=== PATIENT | female | born 1955 | race Caucasian/White ===

== ENCOUNTER 2017-02-24 13:07 | Inpatient (IN) | payer OTHER ==
[~2017-02-24] VITALS: Ht 157.5 cm; Wt 68.0 kg
--- NOTE | 2017-02-24 13:12 | ERA ---
ER Documentation Chief Complaint Date/Time DATE: 02/24/17 TIME: 13:12 Chief Complaint Altered level of consciousness HPI The patient is a 61-year-old female, presenting to the ER because of altered level of consciousness. She hit her head on the table when she bent over at work 4 days ago. She has not been sleeping well , unable to recognize her roommate, not eating, for the last 3 days. She was seen at [facility] yesterday. She had a normal brain CT and was diagnosed with UTI and due to with antibiotic. She has not been herself, therefore the roommate called 911 and took her to the hospital again today. The last time she spoke was around 3:30 AM this morning with her roommate, however she was confused. She has not been speaking this morning and has not follow commands. She smokes half a pack a day, does not drink or use any illicit drug Past medical history: Hypothyroidism Past surgical history: None ROS All systems reviewed and are negative except as per history of present illness. Medications Home Meds Reported Medications Levothyroxine Sodium* (Levothyroxine Sodium*) 100 Mcg Tablet, 100 MCG PO BEFORE BREAKFAST, #30 TAB 02/24/17 Allergies Allergies: Coded Allergies: No Known Allergy (Unverified , 02/24/17) Physical Exam Vitals Vital Signs Date Time Temp Pulse Resp B/P Pulse Ox O2 Delivery O2 Flow Rate FiO2 02/24/17 17:40 98.1 69 20 110/54 99 Room Air 02/24/17 15:05 71 16 129/62 100 Room Air 02/24/17 13:13 99.3 69 20 129/67 99 Physical Exam Const: No acute distress. Head: Atraumatic. Eyes: Normal Conjunctiva. ENT: Normal External Ears, Nose and Mouth. Neck: Full range of motion. No meningismus. Resp: Clear to auscultation bilaterally. Cardio: Regular rate and rhythm, no murmurs. Abd: Soft, non distended, normal bowel sounds, non tender. Skin: No petechiae or rashes. Back: No midline or flank tenderness. Ext: No cyanosis, or edema. Neur: Unable to perform due to her condition. She does not follow commands Psych: Unable to perform due to her condition Result Diagram: 02/24/17 1340 02/24/17 1340 Results 24 hrs Laboratory Tests Test 02/24/17 13:40 02/24/17 13:50 White Blood Count 8.410^3/ul Red Blood Count 4.6910^6/ul Hemoglobin 14.4g/dl Hematocrit 41.8% Mean Corpuscular Volume 89.1fl Mean Corpuscular Hemoglobin 30.7pg Mean Corpuscular Hemoglobin Concent 34.4g/dl Red Cell Distribution Width 11.8% Platelet Count 16908^3/UL Mean Platelet Volume 11.1fl Neutrophils % 76.2% Lymphocytes % 19.1% Monocytes % 3.8% Eosinophils % 0.1% Basophils % 0.4% Nucleated Red Blood Cells % 0.0/100WBC Neutrophils # 6.410^3/ul Lymphocytes # 1.610^3/ul Monocytes # 0.310^3/ul Eosinophils # 0.010^3/ul Basophils # 0.010^3/ul Nucleated Red Blood Cells # 0.010^3/ul Prothrombin Time 13.7Sec Prothrombin Time Ratio 1.1 INR International Normalized Ratio 1.05 Activated Partial Thromboplast Time 32.4Sec Sodium Level 138mmol/L Potassium Level 3.8mmol/L Chloride Level 104mmol/L Carbon Dioxide Level 26mmol/L Anion Gap 12 Blood Urea Nitrogen 10mg/dl Creatinine 0.57mg/dl Glucose Level 92mg/dl Calcium Level 9.2mg/dl Total Bilirubin 0.3mg/dl Direct Bilirubin 0.00mg/dl Indirect Bilirubin 0.3mg/dl Aspartate Amino Transf (AST/SGOT) 20IU/L Alanine Aminotransferase (ALT/SGPT) 30IU/L Alkaline Phosphatase 83IU/L Total Protein 7.4g/dl Albumin 4.3g/dl Globulin 3.10g/dl Albumin/Globulin Ratio 1.38 Free Thyroxine Index 4.23ug/ml Thyroxine (T4) 13.7ug/dl Triiodothyronine (T3) Uptake 30.9% Salicylates Level < 1.0mg/dl Acetaminophen Level < 10.0ug/ml Ethyl Alcohol Level < 10.0mg/dl Urine Color LT. YELLOW Urine Clarity CLEAR Urine pH 5.5 Urine Specific Creede <=1.005 Urine Ketones 15 Urine Nitrite NEGATIVE Urine Bilirubin NEGATIVE Urine Urobilinogen 0.2 E.U./dL Urine Leukocyte Esterase NEGATIVE Urine Microscopic RBC 0-2/HPF Urine Microscopic WBC NONE SEEN/HPF Urine Squamous Epithelial Cells FEW Urine Hemoglobin TRACE Urine Glucose NEGATIVE% Urine Total Protein NEGATIVE Urine Opiates Screen Negative Urine Barbiturates Negative Urine Amphetamines Screen Negative Urine Benzodiazepines Screen Negative Urine Cocaine Screen Negative Urine Cannabinoids Negative Current Medications Medications (Trade) Dose Ordered Sig/Oneyda Route PRN Reason Start Time Stop Time Status Last Admin Dose Admin IV Flush 10 ml 10 ml STK-MED ONCE .ROUTE 02/24/17 15:28 02/24/17 15:29 DC 02/24/17 15:52 Sodium Chloride 100 ml @ ud STK-MED ONCE .ROUTE 02/24/17 15:28 02/24/17 15:29 DC 02/24/17 15:52 Iohexol (Omnipaque) 100 ml @ ud STK-MED ONCE .ROUTE 02/24/17 15:28 02/24/17 15:29 DC 02/24/17 15:52 Levothyroxine Sodium 100 mcg 100 mcg BEFORE BREAKFAST PO 02/25/17 07:00 Levetiracetam 100 ml @ 400 mls/hr ONCE ONCE IVPB 02/24/17 18:30 02/24/17 18:44 Levetiracetam (Keppra 500 Mg/ 100ml (Pmx)) 100 ml @ 400 mls/hr Q12 IVPB 02/25/17 09:00 Famotidine (Pepcid) 20 mg BID PO 02/24/17 21:00 Docusate Sodium (Colace) 100 mg BID PO 02/24/17 21:00 Ondansetron HCl 4 mg 4 mg Q6H PRN IV NAUSEA AND/OR VOMITING 02/24/17 18:30 Sodium Chloride (NS) 1,000 ml @ 100 mls/hr Q10H IV 02/24/17 18:30 Procedures/[place] [id number] Radiology Main Line: [phone] DIAGNOSTIC IMAGING REPORT Patient: KI JOHNSON : 1955 Age: 61 Sex: F MR #: [id number] DOS: 02/24/17 1324 Ordering MD: MERVIN PASTOR MD Location: E/R Room/Bed: PROCEDURE: CTA head and neck CLINICAL INDICATION: Altered mental status, trauma. TECHNIQUE: The study was performed utilizing multidetector CT scanner. Direct thin section axial sections were obtained through the head and neck after the uneventful administration of 90 cc of Omnipaque-350 nonionic intravenous contrast material. Coronal and sagittal as well as maximal intensity projection reformations were obtained. 3-D images were made. The images were reviewed on a PACS workstation. One or more the following does reduction techniques were utilized: Automated exposure control, adjustment of themA/ or kV according to patient's size, or use of iterative reconstruction technique. The total CTDIvol is 23.1, 13.31 mGy and the DLP is 524.28 mGy-cm. COMPARISON: No prior studies are available for comparison. FINDINGS: CTA NECK: The origins of the great vessels off the aortic arch are patent without significant stenosis. Bilateral distal cervical internal carotid arteries are tortuous. The common carotid and internal carotid arteries are patent without significant stenosis by NASCET criteria. Direct measurements of vessel diameters was made in reference to measurements of the distal internal carotid artery diameter. The vertebral arteries are also patent without high-grade stenosis. CTA BRAIN: The internal carotid arteries are patent without significant stenosis. The proximal middle cerebral arteries and anterior cerebral arteries are patent without significant stenosis. The intracranial vertebral arteries, basilar artery, and posterior cerebral arteries are also unremarkable without significant stenosis. No aneurysm or vascular malformation is identified. IMPRESSION: 1. Patent major intracranial and neck arteries. RPTAT: HH .Clementina Whiteside MD, Date Time Electronically viewed and signed by .Clementina Whiteside MD, on 02/24/2017 16: 06 .N/ CC: MERVIN PASTOR MD [place] [address] Radiology Main Line: [phone] DIAGNOSTIC IMAGING REPORT Patient: KI JOHNSON : 1955 Age: 61 Sex: F MR #: [id number] DOS: 02/24/17 1324 Ordering MD: MERVIN PASTOR MD Location: E/R Room/Bed: PROCEDURE: CTA head and neck CLINICAL INDICATION: Altered mental status, trauma. TECHNIQUE: The study was performed utilizing multidetector CT scanner. Direct thin section axial sections were obtained through the head and neck after the uneventful administration of 90 cc of Omnipaque-350 nonionic intravenous contrast material. Coronal and sagittal as well as maximal intensity projection reformations were obtained. 3-D images were made. The images were reviewed on a PACS workstation. One or more the following does reduction techniques were utilized: Automated exposure control, adjustment of themA/ or kV according to patient's size, or use of iterative reconstruction technique. The total CTDIvol is 23.1, 13.31 mGy and the DLP is 524.28 mGy-cm. COMPARISON: No prior studies are available for comparison. FINDINGS: CTA NECK: The origins of the great vessels off the aortic arch are patent without significant stenosis. Bilateral distal cervical internal carotid arteries are tortuous. The common carotid and internal carotid arteries are patent without significant stenosis by NASCET criteria. Direct measurements of vessel diameters was made in reference to measurements of the distal internal carotid artery diameter. The vertebral arteries are also patent without high-grade stenosis. CTA BRAIN: The internal carotid arteries are patent without significant stenosis. The proximal middle cerebral arteries and anterior cerebral arteries are patent without significant stenosis. The intracranial vertebral arteries, basilar artery, and posterior cerebral arteries are also unremarkable without significant stenosis. No aneurysm or vascular malformation is identified. IMPRESSION: 1. Patent major intracranial and neck arteries. RPTAT: HH .Clementina Whiteside MD, Date Time Electronically viewed and signed by .Clementina Whiteside MD, MD on 02/24/2017 16: 07 .N/ CC: MERVIN PASTOR MD [place] [address] Radiology Main Line: [phone] DIAGNOSTIC IMAGING REPORT Patient: KI JOHNSON : 1955 Age: 61 Sex: F MR #: [id number] DOS: 02/24/17 1324 Ordering MD: MERVIN PASTOR MD Location: E/R Room/Bed: PROCEDURE: XR Chest. CLINICAL INDICATION: Altered Mental Status TECHNIQUE: Single frontal chest x-ray. COMPARISON: None. FINDINGS: The lungs are clear of acute infiltrates, edema, effusions, or masses.. The cardiomediastinal silhouette is unremarkable. The osseous structures are intact. IMPRESSION: No acute cardiopulmonary disease. RPTAT: JJ .Mikel Felix MD, MD Date Time Electronically viewed and signed by .Mikel Felix MD, MD on 02/24/2017 14:30 .L/ CC: MERVIN PASTOR MD [place] [address] Radiology Main Line: [phone] DIAGNOSTIC IMAGING REPORT Patient: KI JOHNSON : 1955 Age: 61 Sex: F MR #: [id number] DOS: 02/24/17 1324 Ordering MD: MERVIN PASTOR MD Location: E/R Room/Bed: PROCEDURE: CT brain without contrast CLINICAL INDICATION: Head trauma/injury TECHNIQUE: CT of the brain without contrast performed on a multidetector CT scanner, with multiplanar reformats. One or more of the following dose reduction techniques were used: Automated exposure control, adjustment in mA and / or kV according to patient size, use of iterative reconstructive technique. CTDIvol = 44 mGy; DLP = 720 mGy-cm. COMPARISON: At FINDINGS: No acute intracranial hemorrhage is identified. No extra-axial fluid collection is seen. There is no mass effect. No midline shift is identified. Ventricles and sulci are mildly enlarged compatible with volume loss. There is a punctate calcification in the parasagittal left frontal region. Yu -white differentiation is preserved. Sella is noted to be partly empty. Mild atherosclerotic calcifications are seen at the intracranial internal carotid arteries. Osseous structures are unremarkable. There is partial right sphenoid sinus opacification. IMPRESSION: 1. No evidence of acute intracranial pathology. 2. Mild volume loss. 3. 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 RPTAT: VV .Can Ibanez MD, Date Time Electronically viewed and signed by .Can Ibanez MD, MD on 02/24/2017 15:46 .O/ CC: MERVIN PASTOR MD EKG: Read by emergency physician Rate/Rhythm: Normal Sinus Rhythm 71 beats/min QRS, ST, T-waves: No ST elevation, no T inversion Impression: Normal EKG MEDICAL MAKING DECISION: The patient is a 61-year-old female, presenting with acute encephalopathy of unclear etiology. The differential diagnoses considered include but are not limited to medication non-compliance, alcohol intoxication or withdrawal, drug intoxication or withdrawal, endocrine disorder , trauma, CVA, tumor, metabolic encephalopathy, septic encephalopathy, seizure, psychiatric illness. Critical Care: Time: 35 minutes excluding all billable procedures. Treatments/Evaluations: Close monitoring and treatment of unstable vital signs, cardiorespiratory, and neurologic status, while maintaining tight balance of fluid, respiratory, and cardiac interventions. Departure Diagnosis: Primary Impression: Acute encephalopathy Condition: Stable Comments I discussed the findings with the patient. I discussed the patient with the on- call hospitalist Dr. Rodriguez who was made aware of the lab, the treatment, the patient condition. The patient is admitted to telemetry at 4:50 PM MERVIN PASTOR MD Feb 24, 2017 13:12
[2017-02-24] MEDS ORDERED: LEVO100T87 PO (13:41)
[2017-02-24 13:49] LABS: ADD SCAN DIFF NO
[2017-02-24 13:54] LABS: BASOPHILS % 0.4 % (0.0-2.0); EOSINOPHILS % 0.1 % (0.0-7.0); HEMATOCRIT 41.8 % (37.0-47.0); HEMOGLOBIN 14.4 g/dl (12.0-16.0); LYMPHOCYTES # 1.6 10^3/ul (0.8-2.9); LYMPHOCYTES % 19.1 % (15.0-51.0); MEAN CORPUSCULAR HEMOGLOBIN 30.7 pg (29.0-33.0); MEAN CORPUSCULAR HGB CONC 34.4 g/dl (32.0-37.0); MEAN CORPUSCULAR VOLUME 89.1 fl (82.0-101.0); MEAN PLATELET VOLUME 11.1 fl (7.4-10.4); MONOCYTE # 0.3 10^3/ul (0.3-0.9); MONOCYTES % 3.8 % (0.0-11.0); NEUTROPHIL # 6.4 10^3/ul (1.6-7.5); NEUTROPHILS % 76.2 % (39.0-77.0); PLATELET COUNT 200 10^3/UL (140-415); RED BLOOD COUNT 4.69 10^6/ul (4.20-5.40); RED CELL DISTRIBUTION WIDTH 11.8 % (11.5-14.5); WHITE BLOOD COUNT 8.4 10^3/ul (4.8-10.8)
[2017-02-24 14:04] LABS: INR 1.05; PROTIME 13.7 Sec (12.2-14.2); PT RATIO 1.1
[2017-02-24 14:05] LABS: PARTIAL THROMBOPLASTIN TIME 32.4 Sec (25.0-35.0)
[2017-02-24 14:07] LABS: ALANINE AMINOTRANSFERASE 30 IU/L (13-69); ALBUMIN 4.3 g/dl (3.3-4.9); ALBUMIN/GLOBULIN RATIO 1.38; ALKALINE PHOSPHATASE 83 IU/L (42-121); ANION GAP 12 (8-16); ASPARTATE AMINO TRANSFERASE 20 IU/L (15-46); BILIRUBIN,INDIRECT 0.3 mg/dl (0-1.1); BILIRUBIN,TOTAL 0.3 mg/dl (0.2-1.3); BLOOD UREA NITROGEN 10 mg/dl (7-20); CALCIUM 9.2 mg/dl (8.4-10.2); CARBON DIOXIDE 26 mmol/L (21-31); CHLORIDE 104 mmol/L (97-110); CREATININE 0.57 mg/dl (0.44-1.00); GLUCOSE 92 mg/dl (70-220); POTASSIUM 3.8 mmol/L (3.5-5.1); SODIUM 138 mmol/L (135-144); TOTAL PROTEIN 7.4 g/dl (6.1-8.1)
[2017-02-24 14:10] LABS: ADD UMIC YES; URINE BILIRUBIN (Dip) NEGATIVE (NEGATIVE); URINE BLOOD (Dip) TRACE (NEGATIVE); URINE COLOR LT. YELLOW (YELLOW); URINE GLUCOSE (Dip) NEGATIVE (NEGATIVE); URINE KETONES (Dip) 15 (NEGATIVE); URINE LEUKOCYTE ESTERASE (Dip) NEGATIVE (NEGATIVE); URINE NITRITE (Dip) NEGATIVE (NEGATIVE); URINE TOTAL PROTEIN (Dip) NEGATIVE (NEGATIVE); URINE UROBILINOGEN (Dip) 0.2 E.U./dL (0.1-1.0)
[2017-02-24 14:11] LABS: ETHANOL < 10.0 mg/dl
[2017-02-24 14:24] LABS: T3 UPTAKE 30.9 % (23.5-40.5)
[2017-02-24 14:26] LABS: URINE RBCS 0-2 /HPF (0)
[2017-02-24 14:27] LABS: SQUAMOUS EPITHELIAL CELL,UR FEW
--- NOTE | 2017-02-24 14:30 | RADRPT ---
PROCEDURE: XR Chest. CLINICAL INDICATION: Altered Mental Status TECHNIQUE: Single frontal chest x-ray. COMPARISON: None. FINDINGS: The lungs are clear of acute infiltrates, edema, effusions, or masses.. The cardiomediastinal silho uette is unremarkable. The osseous structures are intact. IMPRESSION: No acute cardiopulmonary disease. RPTAT: JJ .Mikel Felix MD, MD Date Time Electronically viewed and signed by .Mikel Felix MD, MD on 02/24/2017 14:30 .L/
[2017-02-24 14:51] LABS: BARBITURATES Negative (NEGATIVE); BENZODIAZEPINES Negative (NEGATIVE); CANNABINOIDS Negative (NEGATIVE); COCAINE Negative (NEGATIVE); OPIATES Negative (NEGATIVE)
[2017-02-24 14:52] LABS: ACETAMINOPHEN < 10.0 ug/ml (10.0-30.0); SALICYLATE < 1.0 mg/dl (5.0-30.0)
[2017-02-24] MEDS ORDERED: SOD CHLORIDE 0.9% 100 ML ONE (15:28)
[2017-02-24] MEDS ORDERED: IOHEXOL 100 ML ONE (15:28)
--- NOTE | 2017-02-24 15:46 | RADRPT ---
PROCEDURE: CT brain without contrast CLINICAL INDICATION: Head trauma/injury TECHNIQUE: CT of the brain without contrast performed on a multidetector CT scanner, with multiplan ar reformats. One or more of the following dose reduction techniques were used: Automated exposure control, adjustment in mA and / or kV according to patient size, use of iterative reconstructive jefferson hnique. CTDIvol = 44 mGy; DLP = 720 mGy-cm. COMPARISON: At FINDINGS: No acute intracranial hemorrhage is identified. No extra-axial fluid collection is seen. There is no mass effect. No midline shift is identified. Ventricles and sulci are mildly enlarged compatible with volume loss. There is a punctate calcification in the parasagittal left frontal region. Yu-white differentiati on is preserved. Sella is noted to be partly empty. Mild atherosclerotic calcifications are seen at the intracranial internal carotid arteries. Osseous structures are unremarkable. There is partial right sphenoid sinus opacification. IMPRESSION: 1. No evidence of acute intracranial pathology. 2. Mild volume loss. 3. 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 RPTAT: VV .Can Ibanez MD, MD Date Time Electronically viewed and signed by .Can Ibanez MD, on 02/24/2017 15:46 .O/
--- NOTE | 2017-02-24 16:07 | RADRPT ---
PROCEDURE: CTA head and neck CLINICAL INDICATION: Altered mental status, trauma. TECHNIQUE: The study was performed utilizing multidetector CT scanner. Direct thin section axial s ections were obtained through the head and neck after the uneventful administration of 90 cc of Omni paque-350 nonionic intravenous contrast material. Coronal and sagittal as well as maximal intensity projection reformations were obtained. 3-D images were made. The images were reviewed on a PACS [employer]. One or more the following does reduction techniques were utilized: Automated exposure con trol, adjustment of themA/ or kV according to patient's size, or use of iterative reconstruction jefferson hnique. The total CTDIvol is 23.1, 13.31 mGy and the DLP is 524.28 mGy-cm. COMPARISON: No prior studies are available for comparison. FINDINGS: CTA NECK: The origins of the great vessels off the aortic arch are patent without significant stenosis. Bilate ral distal cervical internal carotid arteries are tortuous. The common carotid and internal carotid arteries are patent without significant stenosis by NASCET criteria. Direct measurements of vessel d iameters was made in reference to measurements of the distal internal carotid artery diameter. The v ertebral arteries are also patent without high-grade stenosis. CTA BRAIN: The internal carotid arteries are patent without significant stenosis. The proximal middle cerebral arteries and anterior cerebral arteries are patent without significant stenosis. The intracranial v ertebral arteries, basilar artery, and posterior cerebral arteries are also unremarkable without sig nificant stenosis. No aneurysm or vascular malformation is identified. IMPRESSION: 1. Patent major intracranial and neck arteries. RPTAT: HH .Clementina Whiteside MD, Date Time Electronically viewed and signed by .Clementina Whiteside MD, MD on 02/24/2017 16:07 .N/
[2017-02-24] MEDS ORDERED: ONDANSETRON 4 MG INJ IV PRN (18:30)
[2017-02-24] MEDS ORDERED: LEVETIRACETAM 1000 MG (PMX) 100 ML IVPB ONE (18:30)
--- NOTE | 2017-02-24 18:41 | HP ---
DATE OF ADMISSION: 02/24/2017 PRESENTING COMPLAINT: Altered mentation. HISTORY OF PRESENTING COMPLAINT: A 61-year-old female who was said to be in her normal state of hea lt until about 4 days ago. 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 Afterw ards she seemed fine. She went home. However, at the house, they started noticing that she became more and more lethargic and was having abnormal behavior. Her behavior included just spacing out, m golden loss, inability to remember events that she should know and sometimes not recognizing family m embers, also including forgetting that her son had a child. When the family noticed this, they were very concerned and as such, they took her to the emergency room at [facility] yesterday. She was s een there. They did a CT scan of the brain and it was negative. Urinalysis was suggestive of a uri nary tract infection and as such, they thought this was secondary to these symptoms, so she was give n a prescription for antibiotics and sent home. However, the patient could not fill this prescripti on for other reasons. The family, however, noted that her mentation became worse to the point where now she is not really recognizing family members, she tends to space out. Eyes are open, she is tr acking, even following commands occasionally, but her behavior is she just lies in bed, noncommunica tive. She does not show recognition and based on that, they called the ambulance to bring her here today. In the emergency room, preliminary evaluation to include a CT scan of the brain, head and ne ck CTA have all been negative. The patient is being admitted for further workup and management. PAST MEDICAL HISTORY: Positive for hypothyroidism for which she takes 100 mcg of Synthroid only. PAST SURGICAL HISTORY: Negative. ALLERGIES: SHE HAS NO KNOWN DRUG ALLERGIES. SOCIAL HISTORY: She is a chronic smoker, smokes about 10 cigarettes a day. There is no alcohol or substance use. No marijuana use. FAMILY HISTORY: No family history of seizure disorders or acute stroke. The patient herself has ne mike had any strokes or heart attacks. REVIEW OF SYSTEMS: A 12-point review of systems, there has been no fever per report. She has not c omplained of any pain. She has not complained of headaches. The family has not noted any focal def icits. Her speech when she speaks is clear and understandable. They have not noticed any blood in her urine or in her stool; however, again this is hard to tell. Direct review of systems is unable to be obtained due to patient's mental status. PHYSICAL EXAMINATION: VITAL SIGNS: Temperature 99.3, pulse 71, respirations 16, blood pressure 129/62, saturations 100% o n room air. GENERAL: The patient is alert, but she is obviously encephalopathic, noncommunicative, nonresponsiv e. She will track. She will follow commands occasionally, but she is nonverbal and she is definite ly not oriented (she looks suspicious spaced out). HEENT: Head is normocephalic; however, without evidence of trauma with equal, round, and reactive pupils. No scleral jaundice. No conjunctival pallor. Mucous membranes are moist and posterior pha rynx was clear of erythema and exudate. NECK: Supple without adenopathy or JVD. CHEST: Clear to auscultation with clear breath sounds bilaterally. CARDIOVASCULAR: Heart sounds S1 and S2 without added sounds or murmurs. ABDOMEN: Soft, nontender, nondistended, normoactive bowel sounds. EXTREMITIES: No lower extremity edema. NEUROLOGIC: Other than her mental status, there were no focal deficits. SKIN: Devoid of rash or jaundice. LABORATORY VALUES: CBC was unremarkable as was her CMP. A free T4 was mildly elevated, was mildly elevated as well, but TSH was not done. Urinalysis is not overtly suggestive of a UTI. Urin e toxicology screen was negative. Alcohol, salicylate and Tylenol levels were also negative. 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 A chest x-ray was review ed by myself did not show any acute cardiopulmonary abnormality. CTA of the head and neck did show patent arteries without concerns for abnormality. ASSESSMENT: A 61-year-old female who sustained a bump to her head 4 days ago, who now presents with altered mentation. Acute encephalopathy, source unclear. Differentials include a possible ongoing seizure, likely absent, versus an atypical stroke. The patient is to be admitted to a telemetry dariela or. I am also going to get a neurology consultation for possible other differentials. I am going t o order an EEG of the brain to be done tonight and start her on seizure medications and see if this will help her. I will also send urine for cultures. Get a TSH level. I will get vitamin B12 and t hiamine levels as well. The patient to be put on gentle hydration. Further interventions will depe nd on overall clinical course. She will also benefit from an MRI of the brain as well. I have disc ussed this plan with her family. I have answered their questions. For prophylaxis, she will be giancarlo jesus on sequential compression devices and Pepcid. Dictated By: KIM PEÑA MD, BA/PHUONG Conf#: [id number] DID#: [id number]
[2017-02-24 19:13] LABS: MAGNESIUM 2.1 mg/dl (1.7-2.5); PHOSPHORUS 3.8 mg/dl (2.5-4.9)
[2017-02-24] MEDS: SOD CHLORIDE 0.9% 1,000 ML IV SCH (19:33)
[2017-02-24 19:43] LABS: THYROID STIMULATING HORMONE 3.86 MIU/L (0.465-4.680)
--- NOTE | 2017-02-24 22:24 | RADRPT ---
PROCEDURE: MRI Brain without contrast. CLINICAL INDICATION: Altered mental status, acute encephalopathy. TECHNIQUE: An MRI of the brain was performed utilizing the following sequences: Sagittal and axial T1 weighted, axial T2 weighted, axial diffusion weighted with ADC mapping, coronal GRE, and axial F LAIR. COMPARISON: Brain CT and CTA of the same day. FINDINGS: No diffusion weighted abnormalities are seen to suggest the presence of acute ischemia or recent inf arct. No hypointense signal abnormalities are seen on the GRE images to suggest the presence of blo od degradation products. There is no evidence of intracranial hemorrhage, mass effect, or midline s hift. No extra-axial fluid collections are seen. The ventricles and sulci are mildly enlarged indica tive of volume loss. There are few small scattered foci of T2 FLAIR hyperintensity in the white matter, which are nonspec ific in etiology but likely reflect chronic small vessel ischemic changes. No abnormal intracranial vascular flow void is noted. The visualized paranasal sinuses demonstrate p artial opacification of the right sphenoid sinus, otherwise mild scattered mucosal thickening. IMPRESSION: 1. No acute intracranial hemorrhage, infarction or mass. 2. Trace chronic small vessel ischemic changes. 3. Mild generalized cerebral volume loss. RPTAT: HFN .Clementina Whiteside MD, Date Time Electronically viewed and signed by .Clementina Whiteside MD, MD on 02/24/2017 22:23 .N/
[2017-02-24 23:45] VITALS: TEMP 96.7
[2017-02-24] MEDS: DOCUSATE SODIUM 100 MG CAP PO SCH (23:52)
[2017-02-24] MEDS: FAMOTIDINE 20 MG TAB PO SCH (23:53)
[2017-02-25] VITALS (13 sets, daily range): BP systolic 105–119; BP diastolic 43–65; PULSE 60–75; RESP 16–19; Ht 157.5 cm; Wt 68.0 kg
[2017-02-25] MEDS: SOD CHLORIDE 0.9% 1,000 ML IV SCH (05:36)
[2017-02-25] MEDS: LEVOTHYROXINE 100 MCG TAB PO SCH (05:38)
[2017-02-25] MEDS: DOCUSATE SODIUM 100 MG CAP PO SCH ×2 (09:00→20:50)
[2017-02-25] MEDS: FAMOTIDINE 20 MG TAB PO SCH (09:00)
[2017-02-25 09:31] LABS: ADD SCAN DIFF NO
[2017-02-25 09:33] LABS: BASOPHILS % 0.5 % (0.0-2.0); EOSINOPHILS % 0.1 % (0.0-7.0); HEMATOCRIT 39.1 % (37.0-47.0); HEMOGLOBIN 13.3 g/dl (12.0-16.0); LYMPHOCYTES # 1.3 10^3/ul (0.8-2.9); LYMPHOCYTES % 16.4 % (15.0-51.0); MEAN CORPUSCULAR HEMOGLOBIN 30.7 pg (29.0-33.0); MEAN CORPUSCULAR VOLUME 90.3 fl (82.0-101.0); MEAN PLATELET VOLUME 11.6 fl (7.4-10.4); MONOCYTE # 0.3 10^3/ul (0.3-0.9); MONOCYTES % 3.3 % (0.0-11.0); NEUTROPHILS % 79.4 % (39.0-77.0); PLATELET COUNT 186 10^3/UL (140-415); RED BLOOD COUNT 4.33 10^6/ul (4.20-5.40); RED CELL DISTRIBUTION WIDTH 11.6 % (11.5-14.5); WHITE BLOOD COUNT 7.6 10^3/ul (4.8-10.8)
[2017-02-25 09:46] LABS: CALCIUM 8.3 mg/dl (8.4-10.2); CHOL/HDL RATIO 4.6 RATIO; CREATININE 0.66 mg/dl (0.44-1.00); POTASSIUM 3.6 mmol/L (3.5-5.1)
[2017-02-25] MEDS: LEVETIRACETAM 500 MG (PMX) 100 ML IVPB SCH ×2 (10:33→20:51)
--- NOTE | 2017-02-25 11:20 | CONS ---
Date/Time of Note Date/Time of Note DATE: 02/25/17 TIME: 11:10 Assessment/Plan Assessment/Plan Chief Complaint/Hosp Course 61 year old female with history of hypothyroidism presents after head trauma without LOC, persistent encephalopathy. suspect post-concussive syndrome causing her encephalopathy less likely seizures however will obtain Routine EEG to rule out potential for epileptiform activity B12: 389, TFT's checked, ammonia: 36 slightly elevated will recommend supplementation of B12 MRI Brain without contrast shows chronic ischemic changes, no acute changes continue supportive care Problems: Consultation Date/Type/Reason Admit Date/Time Feb 24, 2017 at 16:51 Date of Consultation: Feb 25, 2017 Type of Consultation: Neurology Reason for Consultation encephalopathy post trauma Referring Provider: KIM PEÑA Hx of Present Illness 61 year old female with history of hypothyroidism was in usual state of health until 4 days ago when 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 History is obtained from the chart as patient is non- verbal and unable to provide history on evaluation today. She was apparently normal after the event, went home and family started noticing abnormal behaviors and lethargy. She was spacing out with memory loss unable to recognize family members. She was taken to [facility] and dx with UTI, CTH was unremarkable and sent home. She is mostly lying in bed non-communicative, per nursing staff she became very agitated at one point this morning began speaking in yi rapidly and now is no longer communicating and lethargic. No seizure activity was reported per family. On arrival to ER due to encephalopathy , seizure was suspected and she was given Keppra load and started on Keppra 500 mg q12h. Subjective hx not possible: pt non-verbal Past Medical History Medical History: no pertinent history Social History Smoking Status: Never smoker Exam/Review of Systems Vital Signs Vitals Vital Signs Date Time Temp Pulse Resp B/P Pulse Ox O2 Delivery O2 Flow Rate FiO2 02/25/17 08:01 98.1 75 19 105/43 94 02/24/17 23:45 Room Air Intake and Output 02/24/17 02/24/17 02/25/17 15:00 23:00 07:00 Intake Total 1250 ml Balance 1250 ml Exam awake and alert tracks examiner non-verbal not following commands stares at examiner CN: ROWDY, blinks to threat no facial asymmetry Motor: withdraws to stimuli anti-gravity in arms and legs Reflexes 2+ throughout toes are upgoing limited exam due to poor cooperation Results Result Diagram: 02/25/1711 02/25/17 0911 Results 24 hrs Laboratory Tests Test 02/24/17 13:40 02/24/17 13:50 02/24/17 18:40 02/25/17 09:11 White Blood Count 8.4 7.6 Red Blood Count 4.69 4.33 Hemoglobin 14.4 13.3 Hematocrit 41.8 39.1 Mean Corpuscular Volume 89.1 90.3 Mean Corpuscular Hemoglobin 30.7 30.7 Mean Corpuscular Hemoglobin Concent 34.4 34.0 Red Cell Distribution Width 11.8 11.6 Platelet Count 200 186 Mean Platelet Volume 11.1 H 11.6 H Neutrophils % 76.2 79.4 H Lymphocytes % 19.1 16.4 Monocytes % 3.8 3.3 Eosinophils % 0.1 0.1 Basophils % 0.4 0.5 Nucleated Red Blood Cells % 0.0 0.0 Neutrophils # 6.4 6.0 Lymphocytes # 1.6 1.3 Monocytes # 0.3 0.3 Eosinophils # 0.0 0.0 Basophils # 0.0 0.0 Nucleated Red Blood Cells # 0.0 0.0 Prothrombin Time 13.7 Prothrombin Time Ratio 1.1 INR International Normalized Ratio 1.05 Activated Partial Thromboplast Time 32.4 Sodium Level 138 140 Potassium Level 3.8 3.6 Chloride Level 104 110 Carbon Dioxide Level 26 21 Anion Gap 12 13 Blood Urea Nitrogen 10 22 #H Creatinine 0.57 0.66 Glucose Level 92 69 #L Calcium Level 9.2 8.3 L Phosphorus Level 3.8 Magnesium Level 2.1 Total Bilirubin 0.3 Direct Bilirubin 0.00 Indirect Bilirubin 0.3 Aspartate Amino Transf (AST/SGOT) 20 Alanine Aminotransferase (ALT/SGPT) 30 Alkaline Phosphatase 83 Total Protein 7.4 Albumin 4.3 Globulin 3.10 Albumin/Globulin Ratio 1.38 Vitamin B12 Level 389 Thyroid Stimulating Hormone (TSH) 3.860 Free Thyroxine Index 4.23 H Thyroxine (T4) 13.7 H Triiodothyronine (T3) Uptake 30.9 Salicylates Level < 1.0 L Acetaminophen Level < 10.0 L Ethyl Alcohol Level < 10.0 Urine Color LT. YELLOW Urine Clarity CLEAR Urine pH 5.5 Urine Specific Jakin <=1.005 L Urine Ketones 15 Urine Nitrite NEGATIVE Urine Bilirubin NEGATIVE Urine Urobilinogen 0.2 E.U./dL Urine Leukocyte Esterase NEGATIVE Urine Microscopic RBC 0-2 Urine Microscopic WBC NONE SEEN Urine Squamous Epithelial Cells FEW Urine Hemoglobin TRACE Urine Glucose NEGATIVE Urine Total Protein NEGATIVE Urine Opiates Screen Negative Urine Barbiturates Negative Urine Amphetamines Screen Negative Urine Benzodiazepines Screen Negative Urine Cocaine Screen Negative Urine Cannabinoids Negative Ammonia 36 H Triglycerides Level 113 Cholesterol Level 210 H LDL Cholesterol, Calculated 142 HDL Cholesterol 45 Cholesterol/HDL Ratio 4.6 Medications Medications Current Medications Levetiracetam (Keppra 500 Mg/ 100ml (Pmx)) 100 ml @ 400 mls/hr Q12 IVPB Last administered on 02/25/17 10:33; Admin Dose 400 MLS/HR; Start 02/25/17 at 09:00 Famotidine (Pepcid) 20 mg BID PO ; Start 02/24/17 at 21:00 Docusate Sodium (Colace) 100 mg BID PO ; Start 02/24/17 at 21:00 Ondansetron HCl 4 mg 4 mg Q6H PRN IV NAUSEA AND/OR VOMITING; Start 02/24/17 at 18:30 Sodium Chloride (NS) 1,000 ml @ 100 mls/hr Q10H IV Last administered on 05:36; Admin Dose 100 MLS/HR; Start 02/24/17 at 18:30 ROD MEZA MD Feb 25, 2017 11:20
[2017-02-25] MEDS ORDERED: HALOPERIDOL 5 MG INJ IM PRN (12:00)
[2017-02-25] MEDS ORDERED: DEXTROSE 50% 50 ML SYRINGE IV ONE (13:30)
[2017-02-25] MEDS: CYANOCOBALAMIN 1000 MCG INJ IM SCH (13:53)
--- NOTE | 2017-02-25 15:54 | PN ---
Date/Time of Note Date/Time of Note DATE: 02/25/17 TIME: 15:51 Assessment/Plan VTE Prophylaxis VTE Prophylaxis Intervention: SCD's Lines/Catheters IV Catheter Type (from Nrsg): Peripheral IV Assessment/Plan Assessment/Plan 1. Acute Encephalopathy s/p head Injury at work - Head/Brain imaging with no acute findings - Neurology on board, will f/u EEG result - Physical Therapy and Swallow Eval - start B12 per Neurology recommendation (once pt passes swallow Eval) 2. Hypoglycemia - 2/2 being NPO because of altered mentation and being on NS IVF - Will add dextrose to IVF - initiate diet when able to take oral 3. Hx of Hypothyroidism - TSH within normal limit - If unable to take med 2/2 altered mentation, will switch to IV Synthroid with appropriate dose adjustment. Endocrine consult as needed. Subjective 24 Hr Interval Summary Free Text/Dictation Confused, agitated Exam/Review of Systems Vital Signs Vitals Vital Signs Date Time Temp Pulse Resp B/P Pulse Ox O2 Delivery O2 Flow Rate FiO2 02/25/17 15:28 98.1 79 19 114/55 95 02/25/17 11:49 Room Air Intake and Output 02/24/17 02/24/17 02/25/17 15:00 23:00 07:00 Intake Total 1250 ml Balance 1250 ml Exam Constitutional: other (altered, agitated) Psych: confusion Eyes: PERRL Respiratory: clear to auscultation, normal air movement Cardiovascular: nl pulses, regular rate and rhythm Gastrointestinal: soft Neurological: confused Results Result Diagram: 02/25/17 0911 02/25/17 0911 Results 24 hrs Laboratory Tests Test 02/24/17 18:40 02/25/17 09:11 02/25/17 13:14 02/25/17 15:11 Ammonia 36 H White Blood Count 7.6 Red Blood Count 4.33 Hemoglobin 13.3 Hematocrit 39.1 Mean Corpuscular Volume 90.3 Mean Corpuscular Hemoglobin 30.7 Mean Corpuscular Hemoglobin Concent 34.0 Red Cell Distribution Width 11.6 Platelet Count 186 Mean Platelet Volume 11.6 H Neutrophils % 79.4 H Lymphocytes % 16.4 Monocytes % 3.3 Eosinophils % 0.1 Basophils % 0.5 Nucleated Red Blood Cells % 0.0 Neutrophils # 6.0 Lymphocytes # 1.3 Monocytes # 0.3 Eosinophils # 0.0 Basophils # 0.0 Nucleated Red Blood Cells # 0.0 Sodium Level 140 Potassium Level 3.6 Chloride Level 110 Carbon Dioxide Level 21 Anion Gap 13 Blood Urea Nitrogen 22 #H Creatinine 0.66 Glucose Level 69 #L Calcium Level 8.3 L Triglycerides Level 113 Cholesterol Level 210 H LDL Cholesterol, Calculated 142 HDL Cholesterol 45 Cholesterol/HDL Ratio 4.6 Bedside Glucose 68 L 111 Medications Medications Current Medications Levetiracetam (Keppra 500 Mg/ 100ml (Pmx)) 100 ml @ 400 mls/hr Q12 IVPB Last administered on 02/25/17 10:33; Admin Dose 400 MLS/HR; Start 02/25/17 at 09:00 Famotidine (Pepcid) 20 mg BID PO ; Start 02/24/17 at 21:00 Docusate Sodium (Colace) 100 mg BID PO ; Start 02/24/17 at 21:00 Ondansetron HCl (Zofran Inj) 4 mg Q6H PRN IV NAUSEA AND/OR VOMITING; Start at 18:30 Cyanocobalamin (Vitamin B12 Inj) 1,000 mcg Q7D IM Last administered on 13:53; Admin Dose 1,000 MCG; Start 02/25/17 at 13:30 Haloperidol (Haldol) 5 mg Q6 PRN IM agitation ; Start 02/25/17 at 12:00 Lorazepam 0.5 mg 0.5 mg Q3 PRN IV AGITATION/ANXIETY; Start 02/25/17 at 12:00 Dextrose/Sodium Chloride (D5-1/2ns) 1,000 ml @ 100 mls/hr Q10H IV ; Start 02/25 at 15:30 MARYBETH SCOTT MD Feb 25, 2017 15:54
[2017-02-25] MEDS: DEXTROSE 5%-0.45% NACL 1,000 ML IV SCH (16:15)
[2017-02-25] MEDS: FAMOTIDINE 20 MG INJ IV SCH (20:54)
[2017-02-26] VITALS (14 sets, daily range): BP systolic 106–173; BP diastolic 53–76; PULSE 63–77; RESP 16–20
[2017-02-26] MEDS: DEXTROSE 5%-0.45% NACL 1,000 ML IV SCH ×2 (03:17→11:30)
[2017-02-26] MEDS: LEVOTHYROXINE 100 MCG TAB PO SCH (06:14)
--- NOTE | 2017-02-26 08:23 | SP ---
DATE OF PROCEDURE: 02/25/2017 EEG REPORT HISTORY: The patient is a 61-year-old woman who presented after head trauma, without loss of consci ousness and has been encephalopathic. PROCEDURE: Utilizing a 16-channel EEG machine, cap scalp electrodes were applied in accordance with the International 10/20 system. [id number] and [id number] montages were displayed. Electric al impedances were measured and reported. DESCRIPTION: During the resting state, a posterior dominant rhythm of about 7 to 8 Hz were seen bih emispherically. Photic stimulation had a good response. Hyperventilation was not performed. There was no focal lateralizing or epileptiform discharges identified. INTERPRETATION: This is mildly abnormal EEG due to the presence of mild generalized bihemispheric b ackground slowing, consistent with subcortical dysfunction, consistent with encephalopathy without e pileptiform activity. Please correlate these findings with the patient's clinical picture. Dictated By: JUNE DAVILA/PHUONG Conf#: [id number] DID#: [id number]
[2017-02-26] MEDS: DOCUSATE SODIUM 100 MG CAP PO SCH ×2 (09:00→20:47)
[2017-02-26] MEDS: LEVETIRACETAM 500 MG (PMX) 100 ML IVPB SCH (09:23)
[2017-02-26] MEDS: FAMOTIDINE 20 MG INJ IV SCH ×2 (09:31→20:48)
[2017-02-26 10:12] LABS: ADD SCAN DIFF NO
[2017-02-26 10:27] LABS: BASOPHIL # 0.1 10^3/ul (0.0-0.1); BASOPHILS % 0.8 % (0.0-2.0); EOSINOPHILS % 0.6 % (0.0-7.0); HEMATOCRIT 36.2 % (37.0-47.0); HEMOGLOBIN 12.5 g/dl (12.0-16.0); LYMPHOCYTES # 1.4 10^3/ul (0.8-2.9); MEAN CORPUSCULAR HEMOGLOBIN 31.3 pg (29.0-33.0); MEAN CORPUSCULAR HGB CONC 34.5 g/dl (32.0-37.0); MEAN CORPUSCULAR VOLUME 90.5 fl (82.0-101.0); MEAN PLATELET VOLUME 11.4 fl (7.4-10.4); MONOCYTE # 0.3 10^3/ul (0.3-0.9); MONOCYTES % 5.2 % (0.0-11.0); NEUTROPHIL # 4.6 10^3/ul (1.6-7.5); NEUTROPHILS % 71.1 % (39.0-77.0); PLATELET COUNT 169 10^3/UL (140-415); RED CELL DISTRIBUTION WIDTH 11.7 % (11.5-14.5); WHITE BLOOD COUNT 6.5 10^3/ul (4.8-10.8)
[2017-02-26 10:30] LABS: POTASSIUM 3.3 mmol/L (3.5-5.1)
[2017-02-26 10:33] LABS: CALCIUM 8.1 mg/dl (8.4-10.2); CREATININE 0.61 mg/dl (0.44-1.00)
--- NOTE | 2017-02-26 10:44 | CONS ---
Date/Time of Note Date/Time of Note DATE: 02/26/17 TIME: 10:40 Consult Date/Type/Reason Admit Date/Time Feb 24, 2017 at 16:51 Initial Consult Date 02/25/17 Type of Consultation: Neurology Reason for Consultation head trauma with severe encephalopathy Ordering Provider: KIM PEÑA Subjective no improvement in condition lying in bed, non-verbal unable to follow any commands, not eating Objective Vital Signs Date Time Temp Pulse Resp B/P Pulse Ox O2 Delivery O2 Flow Rate FiO2 02/26/17 08:08 67 02/26/17 08:01 98.3 18 124/57 98 02/24/17 23:45 Room Air Intake and Output 02/25/17 02/25/17 02/26/17 15:00 23:00 07:00 Intake Total 1100 ml 1000 ml Balance 1100 ml 1000 ml Exam awake and alert stares at examiner blinks to threat non-verbal not following commands CN: ROWDY, blinks to threat no facial asymmetry Motor: withdraws to stimuli anti-gravity in arms and legs no signs of waxy flexibility or catatonia on examination Reflexes 2+ throughout toes are upgoing limited exam due to poor cooperation Results/Medications Result Diagram: 02/26/17 0940 02/26/17 0940 Results 24 hrs Laboratory Tests Test 02/25/17 13:14 02/25/17 15:11 02/25/17 16:05 02/26/17 09:40 Bedside Glucose 68 L 111 80 White Blood Count 6.5 Red Blood Count 4.00 L Hemoglobin 12.5 Hematocrit 36.2 L Mean Corpuscular Volume 90.5 Mean Corpuscular Hemoglobin 31.3 Mean Corpuscular Hemoglobin Concent 34.5 Red Cell Distribution Width 11.7 Platelet Count 169 Mean Platelet Volume 11.4 H Neutrophils % 71.1 Lymphocytes % 22.0 Monocytes % 5.2 Eosinophils % 0.6 Basophils % 0.8 Nucleated Red Blood Cells % 0.0 Neutrophils # 4.6 Lymphocytes # 1.4 Monocytes # 0.3 Eosinophils # 0.0 Basophils # 0.1 Nucleated Red Blood Cells # 0.0 Sodium Level 141 Potassium Level 3.3 L Chloride Level 107 Carbon Dioxide Level 24 Anion Gap 13 Blood Urea Nitrogen 18 Creatinine 0.61 Glucose Level 105 Calcium Level 8.1 L Medications Current Medications Docusate Sodium (Colace) 100 mg BID PO ; Start 02/24/17 at 21:00 Ondansetron HCl (Zofran Inj) 4 mg Q6H PRN IV NAUSEA AND/OR VOMITING; Start at 18:30 Cyanocobalamin (Vitamin B12 Inj) 1,000 mcg Q7D IM Last administered on 13:53; Admin Dose 1,000 MCG; Start 02/25/17 at 13:30 Haloperidol (Haldol) 5 mg Q6 PRN IM agitation ; Start 02/25/17 at 12:00 Lorazepam 0.5 mg 0.5 mg Q3 PRN IV AGITATION/ANXIETY; Start 02/25/17 at 12:00 Dextrose/Sodium Chloride (D5-1/2ns) 1,000 ml @ 100 mls/hr Q10H IV Last administered on 02/26/17 03:17; Admin Dose 100 MLS/HR; Start 02/25/17 at 15:30 Famotidine (Pepcid Iv) 20 mg BID IV Last administered on 02/26/17 09:31; Admin Dose 20 MG; Start 02/25/17 at 21:00 Assessment/Plan Chief Complaint/Hosp Course 61 year old female with history of hypothyroidism presents after head trauma without LOC, persistent encephalopathy. suspect post-concussive syndrome causing her encephalopathy MRI Brain without contrast shows chronic ischemic changes, no acute changes Routine EEG showed slowing, no epileptiform discharges B12: 389, TFT's checked, ammonia: 36 slightly elevated WBC wnl, no fevers or infectious source identified Recommendations: B12 supplementation repeat MRI Brain without contrast to evaluate for possible diffuse axonal injury discontinue AED, no clear seizure described and EEG just shows slowing continue supportive care will request Dr. Whittington to follow up tomorrow Problems: ROD MEZA MD Feb 26, 2017 10:44
[2017-02-26] MEDS ORDERED: POTASSIUM CHLORIDE (SR) 20 MEQ TAB PO STA (11:31)
--- NOTE | 2017-02-26 11:44 | PN ---
Date/Time of Note Date/Time of Note DATE: 02/26/17 TIME: 11:39 Assessment/Plan VTE Prophylaxis VTE Prophylaxis Intervention: SCD's Lines/Catheters IV Catheter Type (from Nrs): Peripheral IV Assessment/Plan Chief Complaint/Hosp Course Assessment/Plan 1. Acute Encephalopathy s/p head Injury at work? - Head/Brain imaging with no acute findings - Neurology on board, EEG result just shows slowing - Kina d/c'ed - Physical Therapy and Swallow Eval - pending - start B12 per Neurology recommendation (once pt passes swallow Eval) - per neuro, repeat brain MRI today without contrast to evaluate for possible diffuse axonal injury 2. Hypoglycemia - 2/2 being NPO because of altered mentation and being on NS IVF - continue dextrose w/ IVF - initiate diet when able to take oral 3. Hx of Hypothyroidism - TSH within normal limit, Free T4 slightly elevated - monitor for now - Endocrine consult as needed. Problems: Subjective 24 Hr Interval Summary Free Text/Dictation Seen by neuro team. Still AMS present. Exam/Review of Systems Vital Signs Vitals Vital Signs Date Time Temp Pulse Resp B/P Pulse Ox O2 Delivery O2 Flow Rate FiO2 02/26/17 08:08 67 02/26/17 08:01 98.3 18 124/57 98 02/24/17 23:45 Room Air Intake and Output 02/25/17 02/25/17 02/26/17 15:00 23:00 07:00 Intake Total 1100 ml 1000 ml Balance 1100 ml 1000 ml Exam Constitutional: other (altered) Psych: confusion Eyes: PERRL Respiratory: clear to auscultation, normal air movement Cardiovascular: nl pulses, regular rate and rhythm Gastrointestinal: soft Neurological: confused Results Result Diagram: 02/26/17 0940 02/26/17 0940 Results 24 hrs Laboratory Tests Test 02/25/17 13:14 02/25/17 15:11 02/25/17 16:05 02/26/17 09:40 Bedside Glucose 68 L 111 80 White Blood Count 6.5 Red Blood Count 4.00 L Hemoglobin 12.5 Hematocrit 36.2 L Mean Corpuscular Volume 90.5 Mean Corpuscular Hemoglobin 31.3 Mean Corpuscular Hemoglobin Concent 34.5 Red Cell Distribution Width 11.7 Platelet Count 169 Mean Platelet Volume 11.4 H Neutrophils % 71.1 Lymphocytes % 22.0 Monocytes % 5.2 Eosinophils % 0.6 Basophils % 0.8 Nucleated Red Blood Cells % 0.0 Neutrophils # 4.6 Lymphocytes # 1.4 Monocytes # 0.3 Eosinophils # 0.0 Basophils # 0.1 Nucleated Red Blood Cells # 0.0 Sodium Level 141 Potassium Level 3.3 L Chloride Level 107 Carbon Dioxide Level 24 Anion Gap 13 Blood Urea Nitrogen 18 Creatinine 0.61 Glucose Level 105 Calcium Level 8.1 L Medications Medications Current Medications Docusate Sodium (Colace) 100 mg BID PO ; Start 02/24/17 at 21:00 Ondansetron HCl (Zofran Inj) 4 mg Q6H PRN IV NAUSEA AND/OR VOMITING; Start at 18:30 Cyanocobalamin (Vitamin B12 Inj) 1,000 mcg Q7D IM Last administered on 13:53; Admin Dose 1,000 MCG; Start 02/25/17 at 13:30 Haloperidol (Haldol) 5 mg Q6 PRN IM agitation ; Start 02/25/17 at 12:00 Lorazepam 0.5 mg 0.5 mg Q3 PRN IV AGITATION/ANXIETY; Start 02/25/17 at 12:00 Dextrose/Sodium Chloride (D5-1/2ns) 1,000 ml @ 100 mls/hr Q10H IV Last administered on 02/26/17 03:17; Admin Dose 100 MLS/HR; Start 02/25/17 at 15:30 Famotidine 20 mg 20 mg BID IV Last administered on 02/26/17 09:31; Admin Dose 20 MG; Start 02/25/17 at 21:00 Potassium Chloride/Dextrose (KCl/D5W) 265 ml @ 88.333 mls/ hr ONCE ONCE IVPB ; Start 02/26/17 at 12:30; Stop 02/26/17 at 15:29 DONAL ANGUIANO Feb 26, 2017 11:44
[2017-02-26] MEDS ORDERED: POTASSIUM CHLORIDE 30 MEQ in DEXTROSE 5% 250 ML IVPB ONE (12:30)
--- NOTE | 2017-02-26 17:13 | RADRPT ---
PROCEDURE: MRI Brain without contrast. CLINICAL INDICATION: Encephalopathy, altered mental status, post trauma. TECHNIQUE: An MRI of the brain was performed utilizing the following sequences: Sagittal and axial T1 weighted, axial T2 weighted, axial diffusion weighted with ADC mapping, coronal GRE, sagittal an d axial FLAIR. COMPARISON: Brain MRI 02/24/2017. FINDINGS: No diffusion weighted abnormalities are seen to suggest the presence of acute ischemia or recent inf arct. No hypointense signal abnormalities are seen on the GRE images to suggest the presence of bloo d degradation products. There is no evidence of intracranial hemorrhage, mass effect, or midline kerrie ft. No extra-axial fluid collections are seen. The ventricles and sulci are mildly enlarged indicati ve of volume loss. There are few small scattered foci of T2 FLAIR hyperintensity in the white matter, which are nonspec ific in etiology but likely reflect chronic small vessel ischemic changes. Other differential consid eration includes complicated migraine or sequela from prior traumatic or inflammatory insults. No abnormal intracranial vascular flow void is noted. The visualized paranasal sinuses demonstrate p artial opacification of the right sphenoid sinus, otherwise mild scattered mucosal thickening. Inter jessica appearance of mild fluid in the right mastoid air cells. IMPRESSION: 1. No acute intracranial hemorrhage, infarction or mass. 2. Few small scattered foci of white matter signal abnormality, which are nonspecific in etiology b ut likely reflect chronic small vessel ischemic changes. Other differential consideration includes c omplicated migraine or sequela from prior traumatic or inflammatory insults. 3. Mild generalized cerebral volume loss. RPTAT: HH .Clementina Whiteside MD, Date Time Electronically viewed and signed by .Clementina Whiteside MD, MD on 02/26/2017 17:13 .N/
[2017-02-26] MEDS: LORAZEPAM 2 MG INJ IV PRN (21:25)
[2017-02-27] MEDS: DEXTROSE 5%-0.45% NACL 1,000 ML IV SCH ×3 (06:12→18:18)
[2017-02-27] MEDS: LEVOTHYROXINE 100 MCG TAB PO SCH (06:12)
[2017-02-27 07:06] LABS: PHOSPHORUS 2.7 mg/dl (2.5-4.9)
[2017-02-27 07:33] LABS: ADD SCAN DIFF NO
[2017-02-27 07:38] LABS: BASOPHILS % 0.4 % (0.0-2.0); EOSINOPHILS # 0.1 10^3/ul (0.0-0.5); EOSINOPHILS % 1.1 % (0.0-7.0); HEMATOCRIT 37.4 % (37.0-47.0); HEMOGLOBIN 12.9 g/dl (12.0-16.0); LYMPHOCYTES # 1.4 10^3/ul (0.8-2.9); LYMPHOCYTES % 17.3 % (15.0-51.0); MEAN CORPUSCULAR HEMOGLOBIN 30.7 pg (29.0-33.0); MEAN CORPUSCULAR HGB CONC 34.5 g/dl (32.0-37.0); MEAN PLATELET VOLUME 11.5 fl (7.4-10.4); MONOCYTE # 0.4 10^3/ul (0.3-0.9); MONOCYTES % 4.8 % (0.0-11.0); NEUTROPHIL # 6.3 10^3/ul (1.6-7.5); NEUTROPHILS % 76.3 % (39.0-77.0); PLATELET COUNT 165 10^3/UL (140-415); RED CELL DISTRIBUTION WIDTH 11.9 % (11.5-14.5); WHITE BLOOD COUNT 8.3 10^3/ul (4.8-10.8)
[2017-02-27 07:43] LABS: CALCIUM 8.6 mg/dl (8.4-10.2); CREATININE 0.56 mg/dl (0.44-1.00); POTASSIUM 3.6 mmol/L (3.5-5.1)
[2017-02-27 08:07] VITALS: BP 129/61; RESP 18
--- NOTE | 2017-02-27 08:35 | PN ---
Date/Time of Note Date/Time of Note DATE: 02/27/17 TIME: 08:32 Assessment/Plan VTE Prophylaxis VTE Prophylaxis Intervention: SCD's Lines/Catheters [facility] Peripheral IV Urinary Cath still in place: Yes Reason Cath still needed: urinary retention Assessment/Plan Chief Complaint/Hosp Course Assessment/Plan 1. Acute Encephalopathy s/p head Injury at work? - Head/Brain imaging with no acute findings, MRI brain yesterday = IMPRESSION: 1. No acute intracranial hemorrhage, infarction or mass. 2. Few small scattered foci of white matter signal abnormality, which are nonspecific in etiology but likely reflect chronic small vessel ischemic changes. Other differential consideration includes complicated migraine or sequela from prior traumatic or inflammatory insults. - f/u Neuro rec's 3. Mild generalized cerebral volume loss. - Neurology on board, EEG result just shows slowing - Kina d/ede'ed - Physical Therapy and Swallow Eval - pending - start B12 per Neurology recommendation (once pt passes swallow Eval) 2. Hypoglycemia - 2/2 being NPO because of altered mentation and being on NS IVF - continue dextrose w/ IVF - initiate diet when able to take oral 3. Hx of Hypothyroidism - TSH within normal limit, Free T4 slightly elevated - monitor for now - Endocrine consult as needed. Problems: Subjective 24 Hr Interval Summary Free Text/Dictation No acute events overnight, per nursing yesterday, pt apparently became slightly more alert yesterday. MRI brain performed as well. Exam/Review of Systems Vital Signs Vitals Vital Signs Date Time Temp Pulse Resp B/P Pulse Ox O2 Delivery O2 Flow Rate FiO2 02/27/17 08:07 97.8 91 18 129/61 97 02/24/17 23:45 Room Air Intake and Output 02/26/17 02/26/17 02/27/17 15:00 23:00 07:00 Intake Total 800 ml Output Total 1500 ml 2400 ml Balance -1500 ml -1600 ml Exam Constitutional: other (altered) Psych: confusion Eyes: PERRL Respiratory: clear to auscultation, normal air movement Cardiovascular: nl pulses, regular rate and rhythm Gastrointestinal: soft Neurological: confused Results Result Diagram: 02/27/17 0640 02/27/17 0530 Results 24 hrs Laboratory Tests Test 02/26/17 09:40 02/27/17 05:30 02/27/17 06:40 White Blood Count 6.5 8.3 # Red Blood Count 4.00 L 4.20 Hemoglobin 12.5 12.9 Hematocrit 36.2 L 37.4 Mean Corpuscular Volume 90.5 89.0 Mean Corpuscular Hemoglobin 31.3 30.7 Mean Corpuscular Hemoglobin Concent 34.5 34.5 Red Cell Distribution Width 11.7 11.9 Platelet Count 169 165 Mean Platelet Volume 11.4 H 11.5 H Neutrophils % 71.1 76.3 Lymphocytes % 22.0 17.3 Monocytes % 5.2 4.8 Eosinophils % 0.6 1.1 Basophils % 0.8 0.4 Nucleated Red Blood Cells % 0.0 0.0 Neutrophils # 4.6 6.3 Lymphocytes # 1.4 1.4 Monocytes # 0.3 0.4 Eosinophils # 0.0 0.1 Basophils # 0.1 0.0 Nucleated Red Blood Cells # 0.0 0.0 Sodium Level 141 140 Potassium Level 3.3 L 3.6 Chloride Level 107 108 Carbon Dioxide Level 24 28 Anion Gap 13 8 Blood Urea Nitrogen 18 7 # Creatinine 0.61 0.56 Glucose Level 105 118 Calcium Level 8.1 L 8.6 Phosphorus Level 2.7 Magnesium Level 2.0 Medications Medications Current Medications Docusate Sodium (Colace) 100 mg BID PO Last administered on 02/26/17 20:47; Admin Dose 100 MG; Start 02/24/17 at 21:00 Ondansetron HCl (Zofran Inj) 4 mg Q6H PRN IV NAUSEA AND/OR VOMITING; Start at 18:30 Cyanocobalamin (Vitamin B12 Inj) 1,000 mcg Q7D IM Last administered on 13:53; Admin Dose 1,000 MCG; Start 02/25/17 at 13:30 Haloperidol (Haldol) 5 mg Q6 PRN IM agitation ; Start 02/25/17 at 12:00 Lorazepam 0.5 mg 0.5 mg Q3 PRN IV AGITATION/ANXIETY Last administered on 21:25; Admin Dose 0.5 MG; Start 02/25/17 at 12:00 Dextrose/Sodium Chloride (D5-1/2ns) 1,000 ml @ 100 mls/hr Q10H IV Last administered on 02/27/17 06:12; Admin Dose 100 MLS/HR; Start 02/25/17 at 15:30 Famotidine (Pepcid Iv) 20 mg BID IV Last administered on 02/26/17t 20:48; Admin Dose 20 MG; Start 02/25/17 at 21:00 DONAL ANGUIANO Feb 27, 2017 08:35
[2017-02-27] MEDS: FAMOTIDINE 20 MG INJ IV SCH ×2 (08:57→20:47)
[2017-02-27] MEDS: DOCUSATE SODIUM 100 MG CAP PO SCH ×2 (09:00→20:48)
[2017-02-27] MEDS: ACETAMINOPHEN 325 MG TAB PO PRN ×2 (15:49→20:48)
[2017-02-27] MEDS ORDERED: HYDROCODONE/APAP (5/325) TAB PO PRN (16:00)
[2017-02-27 19:23] VITALS: BP 133/65; RESP 18
[2017-02-28] MEDS: DEXTROSE 5%-0.45% NACL 1,000 ML IV SCH ×2 (03:39→15:23)
[2017-02-28] MEDS: LEVOTHYROXINE 100 MCG TAB PO SCH (06:36)
[2017-02-28 07:50] VITALS: BP 152/68; RESP 18
[2017-02-28] MEDS: FAMOTIDINE 20 MG INJ IV SCH ×2 (08:42→20:33)
[2017-02-28] MEDS: DOCUSATE SODIUM 100 MG CAP PO SCH ×2 (08:42→20:33)
--- NOTE | 2017-02-28 12:07 | PN ---
Date/Time of Note Date/Time of Note DATE: 02/28/17 TIME: 12:05 Assessment/Plan VTE Prophylaxis VTE Prophylaxis Intervention: other Lines/Catheters IV Catheter Type (from [facility]): Peripheral IV Urinary Cath still in place: Yes Reason Cath still needed: other (indicate) Assessment/Plan Problems: (1) Acute encephalopathy Status: Acute Comment: According to the patient's roommate and son she had had issues with depression and significant anxiety and stress prior to the event. After the closed head trauma she has become somewhat worse. While there is certainly a component that is consistent with concussion here I am also concerned that we are seeing a flare of a psychiatric illness. I will get a tele-psych consult. Neurology's input would be deeply appreciated Subjective 24 Hr Interval Summary Free Text/Dictation Patient initially quite pleasant became agitated rapidly Constitutional: no complaints Respiratory: no complaints Cardiovascular: no complaints Gastrointestinal: no complaints Genitourinary: no complaints Neurologic: headache Exam/Review of Systems Vital Signs Vitals Vital Signs Date Time Temp Pulse Resp B/P Pulse Ox O2 Delivery O2 Flow Rate FiO2 02/28/17 07:50 98.6 71 18 152/68 97 02/24/17 23:45 Room Air Intake and Output 02/27/17 02/27/17 02/28/17 15:00 23:00 07:00 Intake Total 1320 ml 1290 ml Output Total 1500 ml 1500 ml Balance -180 ml -210 ml Exam Refuses to be examined or touched Constitutional: alert, oriented Results Result Diagram: 02/27/17 0640 02/27/17 0530 Medications Medications Current Medications Docusate Sodium (Colace) 100 mg BID PO Last administered on 02/28/17 08:42; Admin Dose 100 MG; Start 02/24/17 at 21:00 Ondansetron HCl (Zofran Inj) 4 mg Q6H PRN IV NAUSEA AND/OR VOMITING; Start at 18:30 Cyanocobalamin (Vitamin B12 Inj) 1,000 mcg Q7D IM Last administered on 13:53; Admin Dose 1,000 MCG; Start 02/25/17 at 13:30 Haloperidol (Haldol) 5 mg Q6 PRN IM agitation ; Start 02/25/17 at 12:00 Lorazepam 0.5 mg 0.5 mg Q3 PRN IV AGITATION/ANXIETY Last administered on 21:25; Admin Dose 0.5 MG; Start 02/25/17 at 12:00 Dextrose/Sodium Chloride (D5-1/2ns) 1,000 ml @ 100 mls/hr Q10H IV Last administered on 02/28/17 03:39; Admin Dose 100 MLS/HR; Start 02/25/17 at 15:30 Famotidine (Pepcid Iv) 20 mg BID IV Last administered on 02/28/17 08:42; Admin Dose 20 MG; Start 02/25/17 at 21:00 Acetaminophen (Tylenol Tab) 650 mg Q6H PRN PO PAIN AND OR ELEVATED TEMP Last administered on 02/27/17 20:48; Admin Dose 650 MG; Start 02/27/17 at 15:30 Acetaminophen/ Hydrocodone Bitart ([place] (5/325)) 1 tab Q6H PRN PO PAIN; Start 02/27/17 at 16:00 ELEAZAR MCGRAW MD Feb 28, 2017 12:07
[2017-02-28] MEDS: LORAZEPAM 2 MG INJ IV PRN ×3 (12:36→20:34)
--- NOTE | 2017-02-28 16:07 | PSY ---
Date/Time of Note Date/Time of Note DATE: 02/28/17 TIME: 19:00 Psychiatric Subjective Eval Consent Pt consented to telemedicine: Yes Subjective Evaluation Patient location: inpatient Chief Complaint: aloc x 4 days after fall with head injury, seen at [place] , negative ct History of present illness 61 yo female with no past psych or medical hx, hit her head 8 days ago and developed nausea and vomiting several days later and was taken to ED. All labs and brain imaging normal but pt has since has marked mental status change of unknown etiology. Has had multiple CT andMRI of brain all show mild volume loss but no acute issues.Labs normal. tried to speak wtih pt but she was completely mute after maya aden MD was a psychiatrist. Her partner reported hx as above, reported that her mental status waxes and wanes, yesterday was fully alert oriented, good memory and engaging adn this has been waxing and waning for several days. Partner again denies any psych hx except some recent depression. No PMHX. No meds at home No allergies Partner denies that pt uses and drugs or etoh On exam, pt appears stated age, in no distress, responds to environment but mute. Responds to partner but mute. Otherwise appears healthy and attentive. Medical history Problems Medical Problems: (1) Acute encephalopathy Status: Acute Allergies: Coded Allergies: No Known Allergy (Unverified , 02/24/17) Psychiatric Objective Eval Mental Status Examination: Laboratory Results Laboratory Tests Test 02/27/17 05:30 02/27/17 06:40 Sodium Level 140mmol/L Potassium Level 3.6mmol/L Chloride Level 108mmol/L Carbon Dioxide Level 28mmol/L Anion Gap 8 Blood Urea Nitrogen 7mg/dl Creatinine 0.56mg/dl Glucose Level 118mg/dl Calcium Level 8.6mg/dl Phosphorus Level 2.7mg/dl Magnesium Level 2.0mg/dl White Blood Count 8.310^3/ul Red Blood Count 4.2010^6/ul Hemoglobin 12.9g/dl Hematocrit 37.4% Mean Corpuscular Volume 89.0fl Mean Corpuscular Hemoglobin 30.7pg Mean Corpuscular Hemoglobin Concent 34.5g/dl Red Cell Distribution Width 11.9% Platelet Count 66446^3/UL Mean Platelet Volume 11.5fl Neutrophils % 76.3% Lymphocytes % 17.3% Monocytes % 4.8% Eosinophils % 1.1% Basophils % 0.4% Nucleated Red Blood Cells % 0.0/100WBC Neutrophils # 6.310^3/ul Lymphocytes # 1.410^3/ul Monocytes # 0.410^3/ul Eosinophils # 0.110^3/ul Basophils # 0.010^3/ul Nucleated Red Blood Cells # 0.010^3/ul Assessment and Plan Assessment/Diagnosis [place] I: depressive do nos; ro delirium, ro conversion do Recommendation/Plan Medication Management 61 yo female with waxing and waning mental status 1 week after head trauma. So far all labs and imaging normal. Does have some depressive sxs per report o fpartner, also mild brain volume loss more than expected for age. Must strongly consider delirium and workup/treat for this. -would recommend d/c'ing lorazepam given possibliity of delirium, If she has been taking daily for over a week would taper -would recommend full medical workup if not already done, including hepatitis tests, lfts, HIV, rpr, tsh, utox, urinalysis -prozac 10mg qd -zyprexa 5mg qhs 5150 Recommendation: Continue Hold JULIO SAAVEDRA Feb 28, 2017 16:07
[2017-02-28 19:27] VITALS: BP 132/73; RESP 18
[2017-03-01] MEDS: DEXTROSE 5%-0.45% NACL 1,000 ML IV SCH ×5 (00:42→22:57)
[2017-03-01] MEDS: LEVOTHYROXINE 100 MCG TAB PO SCH (06:04)
[2017-03-01 07:26] VITALS: BP 131/63; RESP 18
[2017-03-01] MEDS: DOCUSATE SODIUM 100 MG CAP PO SCH ×3 (09:00→21:08)
[2017-03-01] MEDS: FAMOTIDINE 20 MG INJ IV SCH ×2 (09:40→21:08)
--- NOTE | 2017-03-01 13:36 | PN ---
Date/Time of Note Date/Time of Note DATE: 03/01/17 TIME: 13:34 Assessment/Plan VTE Prophylaxis VTE Prophylaxis Intervention: anti-embolic stocking Lines/Catheters IV Catheter Type (from [facility]rs): Peripheral IV Urinary Cath still in place: Yes Reason Cath still needed: urinary retention Assessment/Plan Problems: (1) Acute encephalopathy Status: Acute Comment: She has had EEG and neurology consultation. Psychiatry recommendations that he put onto the chart yesterday but otherwise did not communicate will be followed now. Hopefully she will improve and she can be discharged in the next 48 hours otherwise she will need to be evaluated and sent to a psychiatric facility Subjective 24 Hr Interval Summary Free Text/Dictation Patient sitting up in chair today Constitutional: no complaints Respiratory: no complaints Cardiovascular: no complaints Gastrointestinal: no complaints Psychological: no complaints Exam/Review of Systems Vital Signs Vitals Vital Signs Date Time Temp Pulse Resp B/P Pulse Ox O2 Delivery O2 Flow Rate FiO2 03/01/17 07:26 98.4 76 18 131/63 96 Intake and Output 02/28/17 02/28/17 03/01/17 15:00 23:00 07:00 Intake Total 1480 ml 1250 ml Output Total 2000 ml 600 ml Balance -520 ml 650 ml Exam Constitutional: alert, other (Oriented 2) Psych: anxiety, other (Denies suicidal or homicidal ideation) Neck: non-tender, supple Respiratory: clear to auscultation, normal air movement Cardiovascular: nl pulses, regular rate and rhythm Results Result Diagram: 02/27/17 0640 02/27/17 0530 Medications Medications Current Medications Docusate Sodium (Colace) 100 mg BID PO Last administered on 03/01/17 09:39; Admin Dose 100 MG; Start 02/24/17 at 21:00 Ondansetron HCl (Zofran Inj) 4 mg Q6H PRN IV NAUSEA AND/OR VOMITING; Start at 18:30 Cyanocobalamin (Vitamin B12 Inj) 1,000 mcg Q7D IM Last administered on 13:53; Admin Dose 1,000 MCG; Start 02/25/17 at 13:30 Haloperidol (Haldol) 5 mg Q6 PRN IM agitation ; Start 02/25/17 at 12:00 Lorazepam 0.5 mg 0.5 mg Q3 PRN IV AGITATION/ANXIETY Last administered on 20:34; Admin Dose 0.5 MG; Start 02/25/17 at 12:00 Dextrose/Sodium Chloride (D5-1/2ns) 1,000 ml @ 100 mls/hr Q10H IV Last administered on 03/01/17 12:38; Admin Dose 100 MLS/HR; Start 02/25/17 at 15:30 Famotidine (Pepcid Iv) 20 mg BID IV Last administered on 03/01/17 09:40; Admin Dose 20 MG; Start 02/25/17 at 21:00 Acetaminophen (Tylenol Tab) 650 mg Q6H PRN PO PAIN AND OR ELEVATED TEMP Last administered on 02/27/17 20:48; Admin Dose 650 MG; Start 02/27/17 at 15:30 Acetaminophen/ Hydrocodone Bitart ([place] (5/325)) 1 tab Q6H PRN PO PAIN; Start 02/27/17 at 16:00 ELEAZAR MCGRAW MD Mar 01, 2017 13:36
--- NOTE | 2017-03-01 13:42 | CONS ---
Date/Time of Note Date/Time of Note DATE: 03/01/17 TIME: 13:35 Consult Date/Type/Reason Admit Date/Time Feb 24, 2017 at 16:51 Initial Consult Date 02/25/17 Type of Consultation: Neurology Ordering Provider: KIM PEÑA Subjective intermittently confused per sitter, more awake, in the chair Objective Vital Signs Date Time Temp Pulse Resp B/P Pulse Ox O2 Delivery O2 Flow Rate FiO2 03/01/17 07:26 98.4 76 18 131/63 96 Intake and Output 02/28/17 02/28/17 03/01/17 15:00 23:00 07:00 Intake Total 1480 ml 1250 ml Output Total 2000 ml 600 ml Balance -520 ml 650 ml Results/Medications Result Diagram: 02/27/17 0640 02/27/17 0530 Medications Current Medications Docusate Sodium (Colace) 100 mg BID PO Last administered on 03/01/17 09:39; Admin Dose 100 MG; Start 02/24/17 at 21:00 Ondansetron HCl (Zofran Inj) 4 mg Q6H PRN IV NAUSEA AND/OR VOMITING; Start at 18:30 Cyanocobalamin (Vitamin B12 Inj) 1,000 mcg Q7D IM Last administered on 13:53; Admin Dose 1,000 MCG; Start 02/25/17 at 13:30 Haloperidol 5 mg 5 mg Q6 PRN IM agitation ; Start 02/25/17 at 12:00 Dextrose/Sodium Chloride (D5-1/2ns) 1,000 ml @ 100 mls/hr Q10H IV Last administered on 03/01/17 12:38; Admin Dose 100 MLS/HR; Start 02/25/17 at 15:30 Famotidine (Pepcid Iv) 20 mg BID IV Last administered on 03/01/17 09:40; Admin Dose 20 MG; Start 02/25/17 at 21:00 Acetaminophen (Tylenol Tab) 650 mg Q6H PRN PO PAIN AND OR ELEVATED TEMP Last administered on 02/27/17 20:48; Admin Dose 650 MG; Start 02/27/17 at 15:30 Acetaminophen/ Hydrocodone Bitart ([place] (5/325)) 1 tab Q6H PRN PO PAIN; Start 02/27/17 at 16:00 Assessment/Plan Chief Complaint/Hosp Course awake and alert, oriented x 2,m fluent speech tracks examiner follows commands stares at examiner CN: ROWDY 3 to 2 mm, blinks to threat, EOMI, no facial asymmetry, normal strength and sensation, tongue on midline Motor:5/5, sensory intact LT Reflexes 2+equivocal response to plantar stimulation Ambulates per sitter Problems: Additional Assessment/Plan A?P: S/p blunt head trauma, postconcussive encephalopathy, resolving, no overt seizures, was on Keppra, stopped after EEG did not show seizures, i would continue 500 bid MAYANK LAKE MD Mar 01, 2017 13:42
[2017-03-01] MEDS: FLUOXETINE 10 MG CAP PO SCH (15:30)
[2017-03-01 16:50] LABS: HAAIG REFLEX REFLEX FILED
[2017-03-01 18:02] LABS: HEPATITIS B CORE ANTIBODY NEGATIVE (NEGATIVE)
[2017-03-01 19:31] VITALS: BP 134/61; RESP 16
[2017-03-01] MEDS: LEVETIRACETAM 500 MG TAB PO SCH (21:09)
[2017-03-01] MEDS: OLANZAPINE 5 MG TAB PO SCH (21:09)
[2017-03-02 05:01] LABS: BARBITURATES Negative (NEGATIVE); BENZODIAZEPINES Negative (NEGATIVE); CANNABINOIDS Negative (NEGATIVE); COCAINE Negative (NEGATIVE); OPIATES Negative (NEGATIVE)
[2017-03-02] MEDS: DEXTROSE 5%-0.45% NACL 1,000 ML IV SCH ×4 (05:30→20:22)
[2017-03-02] MEDS: LEVOTHYROXINE 100 MCG TAB PO SCH (06:27)
[2017-03-02] MEDS: FLUOXETINE 10 MG CAP PO SCH (08:22)
[2017-03-02] MEDS: LEVETIRACETAM 500 MG TAB PO SCH ×2 (08:22→20:17)
[2017-03-02] MEDS: DOCUSATE SODIUM 100 MG CAP PO SCH ×2 (08:22→20:17)
[2017-03-02] MEDS: FAMOTIDINE 20 MG INJ IV SCH (08:22)
--- NOTE | 2017-03-02 14:41 | PN ---
Date/Time of Note Date/Time of Note DATE: 03/02/17 TIME: 14:38 Assessment/Plan VTE Prophylaxis VTE Prophylaxis Intervention: SCD's Lines/Catheters IV [facility] Type ([facility] Peripheral IV Urinary Cath still in place: No Assessment/Plan Chief Complaint/Hosp Course Assessment and plan 1. Acute Encephalopathy s/p head Injury at work? - Head/Brain imaging with no acute findings, MRI brain , No acute intracranial hemorrhage, infarction or mass, Few small scattered foci of white matter signal abnormality, which are nonspecific in etiology but likely reflect chronic small vessel ischemic changes. Other differential consideration includes complicated migraine or sequela from prior traumatic or inflammatory insults. - f/u Neuro rec's 3. Mild generalized cerebral volume loss. - Neurology on board, EEG result just shows slowing - Kina d/ede'ed - Physical Therapy and Swallow Eval - pending - start B12 per Neurology recommendation (once pt passes swallow Eval) 2. Hypoglycemia - 2/2 being NPO because of altered mentation and being on NS IVF - continue dextrose w/ IVF - initiate diet when able to take oral 3. Hx of Hypothyroidism - TSH within normal limit, Free T4 slightly elevated - monitor for now - Endocrine consult as needed. We will continue monitor patient closely for recommendation management treatment as clinical course Plan to discharge home tomorrow Problems: Subjective 24 Hr Interval Summary Free Text/Dictation Patient is more awake alert and oriented She is able to follow commands No nausea vomiting diarrhea Difficulty with ambulation secondary to generalized weakness Exam/Review of Systems Vital Signs Vitals Vital Signs Date Time Temp Pulse Resp B/P Pulse Ox O2 Delivery O2 Flow Rate FiO2 03/01/17 19:31 98.5 71 16 134/61 94 Intake and Output 03/01/17 03/01/17 03/02/17 15:00 23:00 07:00 Intake Total 500 ml 1360 ml 840 ml Output Total 1700 ml 400 ml Balance 500 ml -340 ml 440 ml Exam General: The patient is well-developed, Not in acute distress. HEENT: Atraumatic, normocephalic. The pupils are equal and round . Neck: Supple with full range of motion. Chest: Normal expansion of the thorax during inspiration Lungs: Clear to auscultation bilaterally Heart: Normal S1-S2, Regular rhythm and rate. Abdomen: Soft , nontender, nondistended , bowel sounds are present. Extremities: Normal to inspection, no edema no cyanosis Neurologic: The patient is awake, alert and oriented . Results Result Diagram: 02/27/17 0640 02/27/17 0530 Results 24 hrs Laboratory Tests Test 03/01/17 16:15 03/02/17 03:30 Rapid Plasma Reagin NONREACTIVE Urine Opiates Screen Negative Urine Barbiturates Negative Urine Amphetamines Screen Negative Urine Benzodiazepines Screen Negative Urine Cocaine Screen Negative Urine Cannabinoids Negative Medications Medications Current Medications Docusate Sodium (Colace) 100 mg BID PO Last administered on 03/02/17 08:22; Admin Dose 100 MG; Start 02/24/17 at 21:00 Ondansetron HCl (Zofran Inj) 4 mg Q6H PRN IV NAUSEA AND/OR VOMITING; Start at 18:30 Cyanocobalamin (Vitamin B12 Inj) 1,000 mcg Q7D IM Last administered on 13:53; Admin Dose 1,000 MCG; Start 02/25/17 at 13:30 Haloperidol 5 mg 5 mg Q6 PRN IM agitation ; Start 02/25/17 at 12:00 Dextrose/Sodium Chloride (D5-1/2ns) 1,000 ml @ 100 mls/hr Q10H IV Last administered on 03/02/17 08:22; Admin Dose 100 MLS/HR; Start 02/25/17 at 15:30 Famotidine (Pepcid Iv) 20 mg BID IV Last administered on 03/02/17 08:22; Admin Dose 20 MG; Start 02/25/17 at 21:00 Acetaminophen (Tylenol Tab) 650 mg Q6H PRN PO PAIN AND OR ELEVATED TEMP Last administered on 02/27/17 20:48; Admin Dose 650 MG; Start 02/27/17 at 15:30 Acetaminophen/ Hydrocodone Bitart ([place] (5/325)) 1 tab Q6H PRN PO PAIN; Start 02/27/17 at 16:00 Fluoxetine HCl (Prozac) 10 mg DAILY PO Last administered on 03/02/17 08:22; Admin Dose 10 MG; Start 03/01/17 at 14:00 Olanzapine (Zyprexa) 5 mg QHS PO Last administered on 03/01/17 21:09; Admin Dose 5 MG; Start 03/01/17 at 21:00 Levetiracetam (Keppra) 500 mg BID PO Last administered on 03/02/17t 08:22; Admin Dose 500 MG; Start 03/01/17 at 21:00 IRENE YATES MD Mar 02, 2017 14:41
[2017-03-02 19:56] VITALS: BP 135/62; RESP 18
[2017-03-02] MEDS: FAMOTIDINE 20 MG TAB PO SCH (20:18)
[2017-03-02] MEDS: OLANZAPINE 5 MG TAB PO SCH (20:19)
[2017-03-03] MEDS: DEXTROSE 5%-0.45% NACL 1,000 ML IV SCH ×5 (01:30→21:30)
[2017-03-03 05:49] LABS: ADD SCAN DIFF NO
[2017-03-03 06:12] LABS: POTASSIUM 3.3 mmol/L (3.5-5.1)
[2017-03-03 06:14] LABS: CREATININE 0.58 mg/dl (0.44-1.00)
[2017-03-03 06:15] LABS: CALCIUM 8.5 mg/dl (8.4-10.2)
[2017-03-03] MEDS: LEVOTHYROXINE 100 MCG TAB PO SCH (07:11)
[2017-03-03 07:27] VITALS: BP 112/58; RESP 20
[2017-03-03] MEDS: FLUOXETINE 10 MG CAP PO SCH (08:07)
[2017-03-03] MEDS: DOCUSATE SODIUM 100 MG CAP PO SCH ×2 (08:07→20:54)
[2017-03-03] MEDS: LEVETIRACETAM 500 MG TAB PO SCH ×2 (08:07→20:54)
[2017-03-03] MEDS: FAMOTIDINE 20 MG TAB PO SCH ×2 (08:07→20:54)
[2017-03-03 10:41] LABS: BASOPHILS % 0.6 % (0.0-2.0); EOSINOPHILS # 0.2 10^3/ul (0.0-0.5); EOSINOPHILS % 4.5 % (0.0-7.0); HEMATOCRIT 37.2 % (37.0-47.0); HEMOGLOBIN 12.2 g/dl (12.0-16.0); LYMPHOCYTES # 1.6 10^3/ul (0.8-2.9); LYMPHOCYTES % 29.7 % (15.0-51.0); MEAN CORPUSCULAR HEMOGLOBIN 30.3 pg (29.0-33.0); MEAN CORPUSCULAR HGB CONC 32.8 g/dl (32.0-37.0); MEAN CORPUSCULAR VOLUME 92.5 fl (82.0-101.0); MEAN PLATELET VOLUME 12.1 fl (7.4-10.4); MONOCYTE # 0.3 10^3/ul (0.3-0.9); MONOCYTES % 5.9 % (0.0-11.0); NEUTROPHIL # 3.2 10^3/ul (1.6-7.5); NEUTROPHILS % 59.1 % (39.0-77.0); PLATELET COUNT 176 10^3/UL (140-415); RED BLOOD COUNT 4.02 10^6/ul (4.20-5.40); WHITE BLOOD COUNT 5.4 10^3/ul (4.8-10.8)
--- NOTE | 2017-03-03 14:09 | PN ---
Date/Time of Note Date/Time of Note DATE: 03/03/17 TIME: 14:08 Assessment/Plan VTE Prophylaxis VTE Prophylaxis Intervention: SCD's Lines/Catheters IV [facility]ter Type (from [facility]): Peripheral IV Urinary Cath still in place: No Assessment/Plan Chief Complaint/Hosp Course Assessment and plan 1. Acute Encephalopathy s/p head Injury at work? - Head/Brain imaging with no acute findings, MRI brain , No acute intracranial hemorrhage, infarction or mass, Few small scattered foci of white matter signal abnormality, which are nonspecific in etiology but likely reflect chronic small vessel ischemic changes. Other differential consideration includes complicated migraine or sequela from prior traumatic or inflammatory insults. - f/u Neuro rec's 3. Mild generalized cerebral volume loss. - Neurology on board, EEG result just shows slowing - Kina d/ede'ed - Physical Therapy and Swallow Eval - pending - start B12 per Neurology recommendation (once pt passes swallow Eval) 2. Hypoglycemia - 2/2 being NPO because of altered mentation and being on NS IVF - continue dextrose w/ IVF - initiate diet when able to take oral 3. Hx of Hypothyroidism - TSH within normal limit, Free T4 slightly elevated - monitor for now - Endocrine consult as needed. We will continue monitor patient closely for recommendation management treatment as clinical course Plan to discharge home tomorrow Problems: Subjective 24 Hr Interval Summary Free Text/Dictation Patient has been having episodes of altered mental status and speech impairment No nausea vomiting diarrhea Has able to ambulate without any difficulty Tolerating oral intake Exam/Review of Systems Vital Signs Vitals Vital Signs Date Time Temp Pulse Resp B/P Pulse Ox O2 Delivery O2 Flow Rate FiO2 03/03/17 07:27 98.5 20 112/58 97 03/02/17 19:56 71 Intake and Output 03/02/17 03/02/17 03/03/17 14:59 22:59 06:59 Intake Total 400 ml 1500 ml 1320 ml Output Total 1250 ml 600 ml Balance 400 ml 250 ml 720 ml Exam General: The patient is well-developed, Not in acute distress. HEENT: Atraumatic, normocephalic. The pupils are equal and round . Neck: Supple with full range of motion. Chest: Normal expansion of the thorax during inspiration Lungs: Clear to auscultation bilaterally Heart: Normal S1-S2, Regular rhythm and rate. Abdomen: Soft , nontender, nondistended , bowel sounds are present. Extremities: Normal to inspection, no edema no cyanosis Neurologic: Normal mental status,The patient is awake, alert and oriented to self and place. Results Result Diagram: 03/03/1725 03/03/17 0525 Results 24 hrs Laboratory Tests Test 03/03/17 05:25 White Blood Count 5.4 # Red Blood Count 4.02 L Hemoglobin 12.2 Hematocrit 37.2 Mean Corpuscular Volume 92.5 Mean Corpuscular Hemoglobin 30.3 Mean Corpuscular Hemoglobin Concent 32.8 Red Cell Distribution Width 12.0 Platelet Count 176 Mean Platelet Volume 12.1 H Neutrophils % 59.1 Lymphocytes % 29.7 Monocytes % 5.9 Eosinophils % 4.5 Basophils % 0.6 Nucleated Red Blood Cells % 0.0 Neutrophils # 3.2 Lymphocytes # 1.6 Monocytes # 0.3 Eosinophils # 0.2 Basophils # 0.0 Nucleated Red Blood Cells # 0.0 Sodium Level 145 H Potassium Level 3.3 L Chloride Level 108 Carbon Dioxide Level 28 Anion Gap 12 Blood Urea Nitrogen 6 L Creatinine 0.58 Glucose Level 94 Calcium Level 8.5 Medications Medications Current Medications Docusate Sodium (Colace) 100 mg BID PO Last administered on 03/03/17 08:07; Admin Dose 100 MG; Start 02/24/17 at 21:00 Ondansetron HCl (Zofran Inj) 4 mg Q6H PRN IV NAUSEA AND/OR VOMITING; Start at 18:30 Cyanocobalamin (Vitamin B12 Inj) 1,000 mcg Q7D IM Last administered on 13:53; Admin Dose 1,000 MCG; Start 02/25/17 at 13:30 Haloperidol 5 mg 5 mg Q6 PRN IM agitation ; Start 02/25/17 at 12:00 Dextrose/Sodium Chloride (D5-1/2ns) 1,000 ml @ 100 mls/hr Q10H IV Last administered on 03/03/17 06:15; Admin Dose 100 MLS/HR; Start 02/25/17 at 15:30 Acetaminophen (Tylenol Tab) 650 mg Q6H PRN PO PAIN AND OR ELEVATED TEMP Last administered on 02/27/17 20:48; Admin Dose 650 MG; Start 02/27/17 at 15:30 Acetaminophen/ Hydrocodone Bitart ([place] (5/325)) 1 tab Q6H PRN PO PAIN; Start 02/27/17 at 16:00 Fluoxetine HCl (Prozac) 10 mg DAILY PO Last administered on 03/03/17 08:07; Admin Dose 10 MG; Start 03/01/17 at 14:00 Olanzapine (Zyprexa) 5 mg QHS PO Last administered on 03/02/17 20:19; Admin Dose 5 MG; Start 03/01/17 at 21:00 Levetiracetam (Keppra) 500 mg BID PO Last administered on 03/03/17 08:07; Admin Dose 500 MG; Start 03/01/17 at 21:00 Famotidine (Pepcid) 20 mg BID PO Last administered on 03/03/17 08:07; Admin Dose 20 MG; Start 03/02/17 at 21:00 IRENE YATES MD Mar 03, 2017 14:09
[2017-03-03 19:26] VITALS: BP 140/70; RESP 20
[2017-03-03] MEDS: OLANZAPINE 5 MG TAB PO SCH (20:54)
[2017-03-04] MEDS: DEXTROSE 5%-0.45% NACL 1,000 ML IV SCH ×3 (03:02→14:56)
[2017-03-04] MEDS: LEVOTHYROXINE 100 MCG TAB PO SCH (06:13)
[2017-03-04 08:11] VITALS: BP 133/59; RESP 18
[2017-03-04] MEDS: DOCUSATE SODIUM 100 MG CAP PO SCH ×2 (08:22→20:44)
[2017-03-04] MEDS: LEVETIRACETAM 500 MG TAB PO SCH ×2 (08:22→20:44)
[2017-03-04] MEDS: FAMOTIDINE 20 MG TAB PO SCH ×2 (08:22→20:44)
[2017-03-04] MEDS: FLUOXETINE 10 MG CAP PO SCH (08:22)
[2017-03-04] MEDS: CYANOCOBALAMIN 1000 MCG INJ IM SCH (13:04)
--- NOTE | 2017-03-04 13:43 | PN ---
Date/Time of Note Date/Time of Note DATE: 03/04/17 TIME: 13:41 Assessment/Plan VTE Prophylaxis VTE Prophylaxis Intervention: SCD's Lines/Catheters IV [facility] Type (from [facility]): Peripheral IV Urinary Cath still in place: No Assessment/Plan Chief Complaint/Hosp Course Assessment and plan 1. Acute Encephalopathy s/p head Injury at work? - Head/Brain imaging with no acute findings, MRI brain , No acute intracranial hemorrhage, infarction or mass, Few small scattered foci of white matter signal abnormality, which are nonspecific in etiology but likely reflect chronic small vessel ischemic changes. Other differential consideration includes complicated migraine or sequela from prior traumatic or inflammatory insults. - f/u Neuro rec's Repeat telemetry psych to rule out any psychologic issue 3. Mild generalized cerebral volume loss. - Neurology on board, EEG result just shows slowing - Kina d/ede'ed - Physical Therapy and Swallow Eval - pending - start B12 per Neurology recommendation 2. Hypoglycemia Resolved 3. Hx of Hypothyroidism - TSH within normal limit, Free T4 slightly elevated - monitor for now - Endocrine consult as needed. We will continue monitor patient closely for recommendation management treatment as clinical course [facility] Problems: Subjective 24 Hr Interval Summary Free Text/Dictation Patient is awake alert and oriented She has been able to ambulate without any difficulty Tolerating oral intake Complains of having minimal headache Exam/Review of Systems Vital Signs Vitals Vital Signs Date Time Temp Pulse Resp B/P Pulse Ox O2 Delivery O2 Flow Rate FiO2 03/04/17 08:11 98.3 74 18 133/59 99 Intake and Output 03/03/17 03/03/17 03/04/17 15:00 23:00 07:00 Intake Total 1600 ml 2000 ml Output Total 800 ml 1100 ml Balance 800 ml 900 ml Exam General: The patient is well-developed, Not in acute distress. HEENT: Atraumatic, normocephalic. The pupils are equal and round . Neck: Supple with full range of motion. Chest: Normal expansion of the thorax during inspiration Lungs: Clear to auscultation bilaterally Heart: Normal S1-S2, Regular rhythm and rate. Abdomen: Soft , nontender, nondistended , bowel sounds are present. Extremities: Normal to inspection, no edema no cyanosis Neurologic: Normal mental status,The patient is awake, alert and oriented . Results Result Diagram: 03/03/17 0525 03/03/1725 Medications Medications Current Medications Docusate Sodium (Colace) 100 mg BID PO Last administered on 03/04/17 08:22; Admin Dose 100 MG; Start 02/24/17 at 21:00 Ondansetron HCl (Zofran Inj) 4 mg Q6H PRN IV NAUSEA AND/OR VOMITING; Start at 18:30 Cyanocobalamin (Vitamin B12 Inj) 1,000 mcg Q7D IM Last administered on 13:04; Admin Dose 1,000 MCG; Start 02/25/17 at 13:30 Haloperidol 5 mg 5 mg Q6 PRN IM agitation ; Start 02/25/17 at 12:00 Dextrose/Sodium Chloride (D5-1/2ns) 1,000 ml @ 100 mls/hr Q10H IV Last administered on 03/04/17 03:02; Admin Dose 100 MLS/HR; Start 02/25/17 at 15:30 Acetaminophen (Tylenol Tab) 650 mg Q6H PRN PO PAIN AND OR ELEVATED TEMP Last administered on 02/27/17 20:48; Admin Dose 650 MG; Start 02/27/17 at 15:30 Acetaminophen/ Hydrocodone Bitart ([place] (5/325)) 1 tab Q6H PRN PO PAIN; Start 02/27/17 at 16:00 Fluoxetine HCl (Prozac) 10 mg DAILY PO Last administered on 03/04/17 08:22; Admin Dose 10 MG; Start 03/01/17 at 14:00 Olanzapine (Zyprexa) 5 mg QHS PO Last administered on 03/03/17 20:54; Admin Dose 5 MG; Start 03/01/17 at 21:00 Levetiracetam (Keppra) 500 mg BID PO Last administered on 03/04/17 08:22; Admin Dose 500 MG; Start 03/01/17 at 21:00 Famotidine (Pepcid) 20 mg BID PO Last administered on 03/04/17 08:22; Admin Dose 20 MG; Start 03/02/17 at 21:00 IRENE YATES MD Mar 04, 2017 13:43
--- NOTE | 2017-03-04 16:47 | PSY ---
Date/Time of Note Date/Time of Note DATE: 03/04/17 TIME: 14:15 Psychiatric Subjective Eval Subjective Evaluation Patient location: inpatient Chief Complaint: aloc x 4 days after fall with head injury, seen at [facility] , negative ct History of present illness 61 year old female following hitting her head at work a few days ago states that she has been confused, hearing voices or conversations in her head, She presented to the HISTORY OF PRESENTING COMPLAINT: A 61-year-old female who was said to be in her normal state of health until about 4 days ago. 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 Afterwards she seemed fine. She went home. However, at the house, they started noticing that she became more and more lethargic and was having abnormal behavior. Her behavior included just spacing out, memory loss, inability to remember events that she should know and sometimes not recognizing family members, also including forgetting that her son had a child. When the family noticed this, they were very concerned and as such, they took her to the emergency room at [facility] yesterday. She was seen there. They did a CT scan of the brain and it was negative. Urinalysis was suggestive of a urinary tract infection and as such, they thought this was secondary to these symptoms, so she was given a prescription for antibiotics and sent home. However, the patient could not fill this prescription for other reasons. The family, however, noted that her mentation became worse to the point where now she is not really recognizing family members, she tends to space out. Eyes are open, she is tracking, even following commands occasionally, but her behavior is she just lies in bed, noncommunicative. She does not show recognition and based on that, they called the ambulance to bring her here today. In the emergency room, preliminary evaluation to include a CT scan of the brain, head and neck CTA have all been negative. The patient is being admitted for further workup and management. A psychiatric consult was requested. She said that she had a "nervous breakdown" after hearing from her sister that her father had a childhood history of being abused physically. This information was quite distressful to her. She heard this information last Thursday. She hit her head on Thursday. She noted the onset of her symptoms of crying spells and change in her mental sensorium prior to Thursday. The symptom of confusion, auditory hallucinations got worse after the incident on Thursday. Today, she reports that the symptoms of confusion and voices are clearing. She said that hitting her head was unrelated to the onset as well as duration of her presenting symptoms. Past psychiatric history Denies prior history of psychiatric care. Family History Denies any family. Her son had a history of drug abuse. His is fine now. Medical history Problems Medical Problems: (1) Acute encephalopathy Status: Acute Allergies: Coded Allergies: No Known Allergy (Unverified , 02/24/17) Substance Abuse Substance use: No known substance abuse Substance abuse history: No Social History Marital status: other () DPA/Conservatorship: No Psychiatric Objective Eval Review of Systems: Constitutional: Normal Eyes: Normal ENT: Normal Neck: Normal Respiratory: Normal Chest/Breast: Normal Cardiovascular: Normal GI: Normal Genitourinary: Normal Skin: Normal Lymphatic: Normal Musculoskeletal: Normal Neurological: Normal Physical Examination: Physical Examination: Applicable Mental Status Examination: Appearance: Groomed Eye Contact: Good Psychomotor Activity: Normal Behavior: Friendly Speech: Clear AFFECT: Appropriate Mood: Appropriate/Full Though Process: Linear Thought Content: Normal Suicidal: No Homicidal: No On 72 hour hold: No Orientation: x4 Cognition: Alert Insight: Intact Judgement: Intact Attention Span: Intact Laboratory Results Laboratory Tests Test 03/03/17 05:25 White Blood Count 5.410^3/ul Red Blood Count 4.0210^6/ul Hemoglobin 12.2g/dl Hematocrit 37.2% Mean Corpuscular Volume 92.5fl Mean Corpuscular Hemoglobin 30.3pg Mean Corpuscular Hemoglobin Concent 32.8g/dl Red Cell Distribution Width 12.0% Platelet Count 41538^3/UL Mean Platelet Volume 12.1fl Neutrophils % 59.1% Lymphocytes % 29.7% Monocytes % 5.9% Eosinophils % 4.5% Basophils % 0.6% Nucleated Red Blood Cells % 0.0/100WBC Neutrophils # 3.210^3/ul Lymphocytes # 1.610^3/ul Monocytes # 0.310^3/ul Eosinophils # 0.210^3/ul Basophils # 0.010^3/ul Nucleated Red Blood Cells # 0.010^3/ul Sodium Level 145mmol/L Potassium Level 3.3mmol/L Chloride Level 108mmol/L Carbon Dioxide Level 28mmol/L Anion Gap 12 Blood Urea Nitrogen 6mg/dl Creatinine 0.58mg/dl Glucose Level 94mg/dl Calcium Level 8.5mg/dl Assessment and Plan Assessment/Diagnosis [place] I: Brief psychotic episode rule out malingering Recommendation/Plan Medication Management no medications at this time. The episode appears to be self limiting. Follow-up/Disposition She could see a therapist at time of her choosing. 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 The friend said that the injury was "severe" from other witnesses. The patient said that the injury was minor and not associated with loss consciousness, nor required medical treatment, ie. stiches or first aid. It appeared that there may be some mild exaggeration of symptoms in order to obtain a secondary gain. ( malingering) FLAKITA FLORENCE MD Mar 04, 2017 15:28
[2017-03-04 20:25] VITALS: BP 137/88; RESP 20
[2017-03-04] MEDS: OLANZAPINE 5 MG TAB PO SCH (20:44)
[2017-03-05] MEDS: DEXTROSE 5%-0.45% NACL 1,000 ML IV SCH ×2 (01:24→12:58)
[2017-03-05] MEDS: LEVOTHYROXINE 100 MCG TAB PO SCH (06:00)
[2017-03-05 07:23] LABS: POTASSIUM 3.5 mmol/L (3.5-5.1)
[2017-03-05 07:25] LABS: CREATININE 0.65 mg/dl (0.44-1.00)
[2017-03-05 07:26] LABS: CALCIUM 8.5 mg/dl (8.4-10.2)
[2017-03-05 08:11] VITALS: BP 109/57; RESP 18
[2017-03-05] MEDS: LEVETIRACETAM 500 MG TAB PO SCH (08:57)
[2017-03-05] MEDS: FLUOXETINE 10 MG CAP PO SCH (08:57)
[2017-03-05] MEDS: FAMOTIDINE 20 MG TAB PO SCH (08:57)
[2017-03-05] MEDS: DOCUSATE SODIUM 100 MG CAP PO SCH (08:57)
--- NOTE | 2017-03-05 11:53 | PDOCDIS ---
Discharge Instructions CONDITION Patient Condition: Good HOME CARE INSTRUCTIONS: Diet Instructions: Regular ACTIVITY: Activity Restrictions: Slowly Increase Activity Rest between Activity Avoid heavy lifting Avoid Heavy Housework FOLLOW UP/APPOINTMENTS Appointments Follow up with PCP as out-pt Follow up with contracted neurology and psych as out pt IRENE YATES MD Mar 05, 2017 11:53
[2017-03-05] MEDS ORDERED: ACET500C5 PO (11:57)
[2017-03-05] MEDS ORDERED: FAMO20TA18 PO (11:57)
[2017-03-05] MEDS ORDERED: CYAN500T46 PO (11:57)
[2017-03-05] MEDS ORDERED: LEVE-5 PO (11:57)
[2017-03-05] MEDS ORDERED: FLUO10CA17 PO (11:57)
[2017-03-05] MEDS ORDERED: IBUP200C PO (11:57)
--- NOTE | 2017-03-05 13:46 | DS ---
DATE OF ADMISSION: 02/24/2017 DATE OF DISCHARGE: 03/05/2017 CONSULTANTS: 1. Dr. Anuradha Payne 2. Dr. Nixon Whittington 3. Dr. Reilly Hanna. 4. Dr. Tamara Campbell PROCEDURE: EEG which showed there is mildly abnormal EEG due to presence of mild generalized bihemi spheric background slowing consistent with subcortical dysfunction consistent with encephalopathy wi thout epileptiform activity. DISCHARGE DIAGNOSES: 1. Acute encephalopathy. 2. Status post head injury at work. 3. Hypoglycemia. 4. History of hypothyroidism. 5. History of nervous breakdown. 6. Psychotic episode. 7. Questionable malingering. HOSPITAL COURSE: This is a 61-year-old female with past medical history of hypothyroidism who said she was in her normal state of health until while she was at work. She works at the [employer] office and she bent down to picking supervisor something. Upon trying to raise, she hit her head very hard against a hard surface. Afterwards, she seemed to be fine. There was no loss of consciousness, no bleeding, no loss of motor or sensory. No seizure activity. She went home; however. At the house, she star sanjuanita noticing she became more and more lethargic and was having abnormal behavior. Her behavior incl uded spacing out, memory loss and ability to remember the event. She could sometimes not recognize a family member, including forgetting her own son had a child. When the family noticed this, they w ere very concerned and decided to take her to emergency room at [facility] where there was a CT of the brain which was negative. Urinalysis suggestive of urinary tract infection. As such, s he was given a prescription for antibiotics, was sent home. However, the patient could not fill the prescription for some other reason and the family noted that her mentation became worse at the point where she was not really recognizing family members. She t ended to space out, eyes open, she was tracking and even following commands occasionally, but her be havior was that she just lies in bed, noncommunicative. She was brought into the emergency room of [facility] where she had a CTA of the n thomas and head which showed patent major intracranial neck arteries. CT of the head showed patent ana or intracranial and neck arteries. CT of the head showed no evidence to acute intracranial patholog y, mild volume loss. Punctate cerebral calcification which may be post-infectious inflammatory proc ess called . MRI of the brain was obtained which showed no acute intracranial hemorrhage, infa rction or mass. Trace chronic small vessel ischemic changes, mild generalized volume loss. Neurology and tele psych was consulted on 02/28/2017, the patient appeared staged age, no distress, responded to environmental, but became mute as soon as the examination was started. The patient was seen and evaluated by physical therapy and during the course of hospitalization and continued to be seen by neurology. She has been able to ambulate without any difficulty tolerating oral intake and the patient was eventually seen by tele psych again, which during the evaluation, the patient said t hat she has had a nervous breakdown after hearing from her sister that her father had a childhood hi story of being abused physically. This information was quite stressful to her. She heard this info rmation last week and hit her head on Thursday. She noted the onset of her symptoms of crying spells, change in mental status. The symptoms of confusion and has been getting worse since Thursday. Patient has been having symptoms of off and on confusion, although today patient is awake, alert, o riented, and yesterday also, the patient was awake, alert, oriented. She has been able to tolerate oral intake, feed herself, not dependent to others. As per recommendation of psychiatry, no medication at this time. The episodes appears to be self-li miting. This is doubtful to be because of the injury to the head, even though the friend stated ameena t this is a worker's comp and that injury was severe from what was witnessed. Although, the patient said that the injury was minor and not associated with loss of consciousness or requiring medical t reatment until a couple days after. Although there appeared to be some mild exaggeration of symptom s in order to obtain possible secondary gain such as malingering. This morning, patient is awake, a lert, as stated above, although still highly recommend the patient should be seen and evaluated by [facility] primary care physician and we have contacted neurology and psychiatrist as outpatient for further evaluation. At this time, the patient will be discharged with a walker and her rehabilitation/porter sample case have tried to place the patient in a assisted facility for physical therapy, althoug h patient has not been able to be accepted at that. Today, the patient has been able to ambulate wi th a walker, and yesterday also when she was seen and evaluated by physical therapy, she has been ab le to ambulate with a walker. She will be discharged home in stable condition with a close followup with primary care physician and patient will be provided home health by porter sample case. Dictated By: IRENE HOWARD/PHUONG Conf#: [id number] DID#: [id number]
== END 2017-03-05 13:25 | disposition home or self-care (01) | DRG 71 ==
LOC: E/R 13:07 → TEL 16:51 → MS2 02-26 18:35
PROVIDERS: ADMIT Family Medicine; ATTEND Family Medicine
DX: G93.40 Encephalopathy, unspecified (principal); F23 Brief psychotic disorder; S09.90XA Unspecified injury of head, initial encounter; W22.8XXA Striking against or struck by other objects, initial encounter; Y92.531 Health care provider office as the place of occurrence of the external cause; Y99.0 Civilian activity done for income or pay; E03.9 Hypothyroidism, unspecified; E16.2 Hypoglycemia, unspecified; Z76.5 Malingerer [conscious simulation]; Z86.59 Personal history of other mental and behavioral disorders
CPT/HCPCS: 36415; 70450; 70496; 70498; 70551; 71010; 80048; 80053; 80061; 80306; 80307; 81001; 81003; 82140; 82607; 82962; 83735; 84100; 84425; 84436; 84443; 84479; 85025; 85610; 85730; 86592; 86703; 86704; 86709; 86803; 87086; 87340; 92526; 92610; 93005; 95819; 96365; 96366; 97116; 97162; 97530; J1953; J2060; J3420; J7030; J7042; J7070; Q9967

== ENCOUNTER 2017-03-08 18:14 | Emergency (ER) | payer OTHER ==
[~2017-03-08] VITALS: Ht 165.1 cm; Wt 60.0 kg
[~2017-03-08 18:14] MED LIST: ACET500C5 PO; CYAN500T46 PO; FAMO20TA18 PO; FLUO10CA17 PO; IBUP200C PO; LEVE-5 PO; LEVO100T87 PO
[2017-03-08 18:16] VITALS: Ht 165.1 cm; Wt 60.0 kg
--- NOTE | 2017-03-08 18:45 | PSY ---
Date/Time of Note Date/Time of Note DATE: 03/08/17 TIME: 21:40 Psychiatric Subjective Eval Consent Pt consented to telemedicine: Yes Subjective Evaluation Patient location: emergency Chief Complaint: psych hx sent from family for Eval denies SI, HI Reason for consult: Pt hears and talks to people, History of present illness 61 yo female with no past psych or medical hx, known to thi Ammy from encounter last week, hit her head 2 weeks ago and developed nausea and vomiting several days later and was taken to ED. All labs and brain imaging normal at the time but pt has since has marked mental status change of unknown etiology. Has had multiple CT andMRI of brain all show mild volume loss but no acute issues.Labs normal. last week MD tried to speak wtih pt but she was completely mute after maya aden MD was a psychiatrist. Her partner reported hx as above, reported that her mental status waxes and wanes over first week. However, since discharge last week pt has had one week of poor mental status, poor sleep, acting very disorganized and psychotic, going onto balcony and yelling that people are "stupid," pt (who did speak edinson CARRANZA this time though was very odd) reports she is seeing "angels," pt has been communicating with individuals adn hearing numerous voices. Partner again denies any psych hx except some recent depression. No PMHX. No meds at home. Did begin 10mg prozac and refused zyprexa No allergies Partner denies that pt uses and drugs or etoh On exam, pt appears stated age, in no distress, responds fully to environment. Tries to stay mute but eventually responds with very psychotic, disorganized material. Is fully alert and oriented. Hospitalization: yes Family History as above Medical history Problems Medical Problems: (1) Acute encephalopathy Status: Acute Allergies: Coded Allergies: No Known Allergy (Unverified , 02/24/17) Social History Marital status: single Assessment and Plan Assessment/Diagnosis [place] I: Psychosis nos and/or delirium and/or conversion do Recommendation/Plan Medication Management 61 yo female with worsening and more persistently abnormal mental status 2 week after head trauma (dep vs delirium vs psychosis vs conversion, all not mutually exclusive). So far all labs and imaging normal. Does have some depressive sxs per report o fpartner, also mild brain volume loss more than expected for age. Must strongly consider delirium and workup/treat for this. Not able to function in community, very psychotic, not sleeping. -would recommend d/c'ing lorazepam given possibliity of delirium, If she has been taking daily for over a week would taper -would recommend full medical workup if not already done, including hepatitis tests, lfts, HIV, rpr, tsh, utox, urinalysis, electrolytes, cbc -prozac 10mg qd -zyprexa 5mg qhs -would recommend repeat brain imaging -pt is too ill to care for self in community; should be either inpatient medical or inpatient psych on [phone] Recommendation: Place [facility] JULIO SAAVEDRA Mar 08, 2017 18:45
[2017-03-08 19:03] LABS: ADD SCAN DIFF NO
[2017-03-08 19:05] LABS: BASOPHILS % 0.5 % (0.0-2.0); EOSINOPHILS % 0.5 % (0.0-7.0); HEMATOCRIT 42.5 % (37.0-47.0); HEMOGLOBIN 14.8 g/dl (12.0-16.0); LYMPHOCYTES # 2.2 10^3/ul (0.8-2.9); LYMPHOCYTES % 25.4 % (15.0-51.0); MEAN CORPUSCULAR HEMOGLOBIN 30.7 pg (29.0-33.0); MEAN CORPUSCULAR HGB CONC 34.8 g/dl (32.0-37.0); MEAN CORPUSCULAR VOLUME 88.2 fl (82.0-101.0); MONOCYTE # 0.4 10^3/ul (0.3-0.9); MONOCYTES % 4.7 % (0.0-11.0); NEUTROPHIL # 5.9 10^3/ul (1.6-7.5); NEUTROPHILS % 68.5 % (39.0-77.0); PLATELET COUNT 301 10^3/UL (140-415); RED BLOOD COUNT 4.82 10^6/ul (4.20-5.40); RED CELL DISTRIBUTION WIDTH 11.7 % (11.5-14.5); WHITE BLOOD COUNT 8.5 10^3/ul (4.8-10.8)
[2017-03-08 19:13] LABS: ALBUMIN 4.6 g/dl (3.3-4.9); CHLORIDE 103 mmol/L (97-110)
[2017-03-08 19:14] LABS: POTASSIUM 3.6 mmol/L (3.5-5.1); SODIUM 143 mmol/L (135-144)
[2017-03-08 19:16] LABS: ALBUMIN/GLOBULIN RATIO 1.27; ALKALINE PHOSPHATASE 89 IU/L (42-121); ANION GAP 16 (8-16); ASPARTATE AMINO TRANSFERASE 17 IU/L (15-46); BILIRUBIN,INDIRECT 0.4 mg/dl (0-1.1); BILIRUBIN,TOTAL 0.4 mg/dl (0.2-1.3); CARBON DIOXIDE 28 mmol/L (21-31); CREATININE 0.63 mg/dl (0.44-1.00); TOTAL PROTEIN 8.2 g/dl (6.1-8.1)
[2017-03-08 19:17] LABS: ALANINE AMINOTRANSFERASE 22 IU/L (13-69); BLOOD UREA NITROGEN 7 mg/dl (7-20); GLUCOSE 108 mg/dl (70-220)
[2017-03-08 19:19] LABS: ACETAMINOPHEN < 10.0 ug/ml (10.0-30.0); ETHANOL < 10.0 mg/dl; SALICYLATE < 1.0 mg/dl (5.0-30.0)
[2017-03-08 19:27] LABS: ADD UMIC YES; URINE BILIRUBIN (Dip) NEGATIVE (NEGATIVE); URINE BLOOD (Dip) TRACE (NEGATIVE); URINE COLOR LT. YELLOW (YELLOW); URINE GLUCOSE (Dip) NEGATIVE (NEGATIVE); URINE KETONES (Dip) NEGATIVE (NEGATIVE); URINE LEUKOCYTE ESTERASE (Dip) 1+ (NEGATIVE); URINE NITRITE (Dip) NEGATIVE (NEGATIVE); URINE TOTAL PROTEIN (Dip) NEGATIVE (NEGATIVE); URINE UROBILINOGEN (Dip) 0.2 E.U./dL (0.1-1.0)
[2017-03-08] MEDS: FLUOXETINE 10 MG CAP PO SCH (19:30)
--- NOTE | 2017-03-08 19:40 | RADRPT ---
PROCEDURE: CT Head without contrast. CLINICAL INDICATION: Altered mental status TECHNIQUE: Continuous axial CT images were obtained from the base of skull to the vertex. No cont rast was administered. The calculated radiation dose measures 720 mGy centimeters. The CTDI measures 44 mGy COMPARISON: None available FINDINGS: The ventricles are symmetric and normal in size. There is no mass effect or midline shift. There i s no abnormal intra-axial or extra-axial fluid collection. There is no evidence of intracranial hem orrhage. There are no abnormal areas of increased or decreased attenuation in the brain parenchyma. There is mild intracranial vascular calcification. The bony calvarium is intact. The orbital soft tissue contents are unremarkable. Paranasal sinuses appear clear . There is fluid in the right mastoid air cells. There is small fluid in the right s phenoid sinus. IMPRESSION: No mass effect or acute intracranial bleed. Fluid in the right mastoid air cells. Small fluid in th e right sphenoid sinus, which could reflect acute sinusitis involvement.. RPTAT: HBST .Slava Parker MD, Date Time Electronically viewed and signed by .Slava Parker MD, on 03/08/2017 19:39 .T/
[2017-03-08 19:42] LABS: SQUAMOUS EPITHELIAL CELL,UR FEW; URINE RBCS 0-2 /HPF (0)
[2017-03-08 19:44] LABS: BARBITURATES NEGATIVE (NEGATIVE); BENZODIAZEPINES NEGATIVE (NEGATIVE); CANNABINOIDS NEGATIVE (NEGATIVE); COCAINE NEGATIVE (NEGATIVE); OPIATES NEGATIVE (NEGATIVE)
--- NOTE | 2017-03-08 19:45 | ERA ---
ER Documentation Chief Complaint Date/Time DATE: 03/08/17 TIME: 19:43 Chief Complaint psych hx sent from family for Eval denies SI, HI HPI Patient is a 61-year-old female with depression who presents with psychosis. The patient was brought in by ambulance. The patient fell and hit her head 9 days ago. She has had "psychiatric issues" since then. She denies suicidal ideation or homicidal ideation. However she is talking to people. Upon review of old medical records the patient was seen and admitted to the hospital on February 24 and had a full workup for encephalopathy. She does not know the name of her primary doctor. ROS All systems reviewed and are negative except as per history of present illness. Medications Home Meds Active Scripts Acetaminophen* (Tylophen*) 500 Mg Capsule, 500 MG PO Q6H Y for PAIN, #30 TAB Prov:IRENE YATES MD 03/05/17 Ibuprofen* (Ibuprofen*) 200 Mg Capsule, 200 MG PO QID Y for PAIN, #30 CAP Prov:IRENE YATES MD 03/05/17 Fluoxetine Hcl* (Fluoxetine Hcl*) 10 Mg Capsule, 10 MG PO DAILY, #30 CAP Prov:IRENE YATES MD 03/05/17 Cyanocobalamin* (Vitamin B12*) 500 Mcg Tab, 1000 MCG PO DAILY, #30 TAB Prov:IRENE YATES MD 03/05/17 Famotidine* (Famotidine*) 20 Mg Tablet, 20 MG PO DAILY, #30 TAB Prov:IRENE YATES MD 03/05/17 Levetiracetam* (Keppra*) 500 Mg Tablet, 500 MG PO BID, #60 TAB Prov:IRENE YATES MD 03/05/17 Reported Medications Levothyroxine Sodium* (Levothyroxine Sodium*) 100 Mcg Tablet, 100 MCG PO BEFORE BREAKFAST, #30 TAB 02/24/17 Allergies Allergies: Coded Allergies: No Known Allergy (Unverified , 02/24/17) PMhx/Soc Medical and Surgical Hx: pt denies Surgical Hx History of Surgery: No Anesthesia Reaction: No Hx Neurological Disorder: No Hx Respiratory Disorders: No Hx Cardiac Disorders: No Hx Psychiatric Problems: No Hx Miscellaneous Medical Probl: Yes (Hypothyrodism) Hx Alcohol Use: No Hx Substance Use: No Hx Tobacco Use: No Smoking Status: Current every day smoker FmHx Family History: No diabetes Physical Exam Vitals Vital Signs Date Time Temp Pulse Resp B/P Pulse Ox O2 Delivery O2 Flow Rate FiO2 03/08/17 18:16 98.1 68 22 135/72 100 Physical Exam Const: No acute distress Head: Atraumatic Eyes: Normal Conjunctiva ENT: Normal External Ears, Nose and Mouth. Neck: Full range of motion..~ No meningismus. Resp: Clear to auscultation bilaterally Cardio: Regular rate and rhythm, no murmurs Abd: Soft, non tender, non distended. Normal bowel sounds Skin: No petechiae or rashes Back: No midline or flank tenderness Ext: No cyanosis, or edema Neur: Awake and alert Psych: Patient does appear to be having hallucinations, evasive with answering some questions, denies suicidal or homicidal ideation Result Diagram: 03/08/17 0645 03/08/17 0645 Results 24 hrs Laboratory Tests Test 03/08/17 06:45 03/08/17 19:00 White Blood Count 8.510^3/ul Red Blood Count 4.8210^6/ul Hemoglobin 14.8g/dl Hematocrit 42.5% Mean Corpuscular Volume 88.2fl Mean Corpuscular Hemoglobin 30.7pg Mean Corpuscular Hemoglobin Concent 34.8g/dl Red Cell Distribution Width 11.7% Platelet Count 85426^3/UL Mean Platelet Volume 11.0fl Neutrophils % 68.5% Lymphocytes % 25.4% Monocytes % 4.7% Eosinophils % 0.5% Basophils % 0.5% Nucleated Red Blood Cells % 0.0/100WBC Neutrophils # 5.910^3/ul Lymphocytes # 2.210^3/ul Monocytes # 0.410^3/ul Eosinophils # 0.010^3/ul Basophils # 0.010^3/ul Nucleated Red Blood Cells # 0.010^3/ul Sodium Level 143mmol/L Potassium Level 3.6mmol/L Chloride Level 103mmol/L Carbon Dioxide Level 28mmol/L Anion Gap 16 Blood Urea Nitrogen 7mg/dl Creatinine 0.63mg/dl Glucose Level 108mg/dl Calcium Level 10.0mg/dl Total Bilirubin 0.4mg/dl Direct Bilirubin 0.00mg/dl Indirect Bilirubin 0.4mg/dl Aspartate Amino Transf (AST/SGOT) 17IU/L Alanine Aminotransferase (ALT/SGPT) 22IU/L Alkaline Phosphatase 89IU/L Total Protein 8.2g/dl Albumin 4.6g/dl Globulin 3.60g/dl Albumin/Globulin Ratio 1.27 Free Thyroxine 1.03ng/dl Salicylates Level < 1.0mg/dl Acetaminophen Level < 10.0ug/ml Ethyl Alcohol Level < 10.0mg/dl Urine Color LT. YELLOW Urine Clarity CLEAR Urine pH 6.5 Urine Specific [place] 1.010 Urine Ketones NEGATIVE Urine Nitrite NEGATIVE Urine Bilirubin NEGATIVE Urine Urobilinogen 0.2 E.U./dL Urine Leukocyte Esterase 1+ Urine Microscopic RBC 0-2/HPF Urine Microscopic WBC 5-10/HPF Urine Squamous Epithelial Cells FEW Urine Hemoglobin TRACE Urine Glucose NEGATIVE% Urine Total Protein NEGATIVE Current Medications Medications (Trade) Dose Ordered Sig/Oneyda Route PRN Reason Start Time Stop Time Status Last Admin Dose Admin Fluoxetine HCl (Prozac) 10 mg DAILY PO 03/08/17 19:30 Olanzapine (Zyprexa Zydis) 5 mg QHS ODT 03/08/17 21:00 Procedures/MDM CT brain negative per radiology. Smoking Cessation Therapy: Pt. was lectured for greater than 3 minutes on the health risks of continued smoking and the benefits of cessation. Patient is a 61-year-old female who presents with acute psychosis. Laboratory studies were basically normal. CT scan of the brain does not show any signs of intracranial hemorrhage or skull fracture. The patient had a psychiatric evaluation and a 5150 hold was recommended by psychiatry for grave disability and psychosis. Psychiatry recommended Prozac 10 mg daily and Zyprexa 5 mg at night which I have ordered. The patient is medically clear for psychiatric transfer at this time. We will attempt to find psychiatric placement. Departure Diagnosis: Primary Impression: Acute psychosis Condition: ABDOULAYE Sanders MD Mar 08, 2017 19:45
[2017-03-08] MEDS: OLANZAPINE (ODT) 5 MG TAB ODT SCH (20:16)
[2017-03-09] MEDS ORDERED: LORAZEPAM 2 MG INJ IV ONE (02:00)
[2017-03-09] MEDS ORDERED: TRAZ50TA18 PO (08:32)
[2017-03-09] MEDS: OLANZAPINE (ODT) 5 MG TAB ODT SCH (08:54)
[2017-03-09] MEDS: FLUOXETINE 10 MG CAP PO SCH (08:54)
[2017-03-10 03:38] VITALS: BP 126/71; PULSE 83; RESP 20; TEMP 98
== END 2017-03-10 03:59 ==
LOC: E/R 18:14
DX: F29 Unspecified psychosis not due to a substance or known physiological condition (principal); F17.210 Nicotine dependence, cigarettes, uncomplicated; E03.9 Hypothyroidism, unspecified; R40.2142 Coma scale, eyes open, spontaneous, at arrival to emergency department; R40.2252 Coma scale, best verbal response, oriented, at arrival to emergency department; R40.2362 Coma scale, best motor response, obeys commands, at arrival to emergency department
CPT/HCPCS: 36415; 70450; 80053; 80306; 80307; 81001; 84439; 84443; 85025; 96374; 99285; J2060; 81003